=== PATIENT | female | born 1945 | race Caucasian/White ===

== ENCOUNTER 2022-02-12 08:55 | Inpatient (IN) ==
[2022-02-12 09:39] LABS: Arterial Base Excess iSTAT 3 MMOL/L (-2.5-2.5); Arterial O2 Saturation iSTAT 96 % (95-100); Arterial PCO2 iSTAT 33 MM HG (35-48); Arterial PO2 iSTAT 73 MM HG (80-95); Arterial Total CO2 iSTAT 27 MMO/L (23-27)
[2022-02-12 09:48] LABS: Basophils % 0.2 % (0.0-0.8); Eosinophils % 0.1 % (0.00-10.9); Hematocrit 29.8 VOL% (35.7-47.0); Hemoglobin 8.4 GM/DL (12.0-16.0); Immature Granulocytes % 0.7 %; Immature Granulocytes Absolute 0.12 #; Lymphocytes # 0.9 10*3/uL (1.4-4.0); Lymphocytes % 5.1 % (21.3-54.2); Mean Corpuscular HGB Conc 28.2 GM/DL (32-36); Mean Corpuscular Volume 73.2 FL (87-102); Mean Platelet Volume 9.1 FL (9.6-12.0); Monocytes % 11.5 % (1.7-12.7); Neutrophils % 82.4 % (38.7-73.9); Platelet Count 341 T/CUMM (130-400); Red Blood Count 4.07 MC/CUMM (3.8-5.5); Red Cell Distribution Width 17.2 % (9.3-17.3); White Blood Count 17.3 T/CUMM (4-12)
[2022-02-12 09:49] LABS: Albumin 3.2 G/DL (3.4-5.0); Bilirubin,Total 0.4 MG/DL (0.20-1.00); Calcium 8.7 MG/DL (8.5-10.1); Osmolality,Calculated 277.7 MOS/KG (273-304); Potassium 3.8 MMOL/L (3.5-5.1); Total Protein 6.8 G/DL (6.4-8.2)
[2022-02-12] MEDS ORDERED: ALBUTEROL 2.5 MG/3 ML NEB RESP TX STA (09:56)
[2022-02-12] MEDS ORDERED: cefTRIAXone 1,000 MG in SODIUM CHLORIDE 0.9% 100 ML IV STA (09:56)
[2022-02-12] MEDS ORDERED: methylPREDNISolone SOD SUC 40 MG/1 ML VIAL IV STA (09:56)
[2022-02-12] MEDS ORDERED: AZITHROMYCIN INJ 500 MG in SODIUM CHLORIDE 0.9% 250 ML IV STA (09:57)
[2022-02-12 10:24] LABS: Anisocytosis 1+; Platelet Estimate Normal
[2022-02-12] MEDS ORDERED: ACETAMINOPHEN 500 MG TABLET ONE (10:34)
[2022-02-12] MEDS ORDERED: ACETAMINOPHEN 500 MG TABLET PO STA (10:34)
[2022-02-12 10:44] LABS: RBC,Urine 4 /HPF (0-4); Squamous Epithelial Cell,Urine Moderate /HPF (0-10); Urine Appearance Clear (Clear); Urine Color Yellow (Yellow)
[2022-02-12 10:45] LABS: Bilirubin,Urine Negative (Negative); Blood, Urine Negative (Negative); Glucose,Urine (UA) Negative (Negative); Ketones,Urine Negative (Negative); Nitrite,Urine Negative (Negative); Protein,Urine >=300 mg/dL (Negative); Urine Specific Gravity > 1.030 (1.001-1.035); Urine Urobilinogen 0.2 eU/dL (<2.0)
[2022-02-12] MEDS ORDERED: GLUCAGON 1 MG VIAL IM PRN ×2 (10:46→11:25)
[2022-02-12] MEDS ORDERED: ACETAMINOPHEN 325 MG TABLET PO PRN (10:46)
[2022-02-12] MEDS ORDERED: ACETAMINOPHEN 500 MG TABLET PO PRN (10:50)
[2022-02-12 11:06] LABS: Risk Ratio 2.95; VLDL Cholesterol 16.8 MG/DL
[2022-02-12] MEDS ORDERED: DEXTROSE 10% 250 ML BAG IV PRN (11:15)
[2022-02-12] MEDS: hydrALAZINE 25 MG TABLET PO SCH ×2 (11:20→22:55)
[2022-02-12] MEDS ORDERED: DEXTROSE 50% 25 GM/50 ML VIAL IV PRN (11:25)
[2022-02-12 11:54] LABS: % Iron Saturation 5.6 % (18-50); Ferritin 23.1 ng/mL (8-252)
[2022-02-12] MEDS ORDERED: FUROSEMIDE 40 MG/4 ML VIAL IV ONE (12:00)
[2022-02-12] MEDS: ALBUTEROL/IPRATROPIUM 3 ML NEB RESP TX SCH ×2 (13:20→19:59)
[2022-02-12] MEDS: methylPREDNISolone SOD SUC 40 MG/1 ML VIAL IV SCH ×2 (13:42→21:00)
[2022-02-12] MEDS: INSULIN LISPRO 100 UNIT/ML SUBCUT SCH ×3 (13:53→23:19)
[2022-02-12] MEDS: amLODIPine 10 MG TABLET PO SCH (21:01)
[2022-02-12] MEDS: allopurinoL 300 MG TABLET PO SCH (21:01)
[2022-02-12] MEDS: ENOXAPARIN 30 MG/0.3 ML SYRINGE SUBCUT SCH (21:01)
[2022-02-12] MEDS: CHOLECALCIFEROL 1,000 UNIT TABLET PO SCH (21:01)
[2022-02-12] MEDS: AMITRIPTYLINE 25 MG TABLET PO SCH (21:01)
[2022-02-12] MEDS: predniSONE 10 MG TABLET PO SCH (21:01)
[2022-02-12] MEDS: PHENYTOIN ER 100 MG CAPSULE PO SCH (21:01)
[2022-02-12] MEDS: ASPIRIN EC 81 MG TABLET PO SCH (21:02)
[2022-02-12] MEDS: CLOPIDOGREL 75 MG TABLET PO SCH (21:02)
[2022-02-12] MEDS: ISOSORBIDE MONONITRATE 30 MG TABLET PO SCH (21:02)
[2022-02-12] MEDS: VIT C S CHERRY CELERY GRAPE SD PO SCH (21:30)
[2022-02-12] MEDS: ZALEPLON 5 MG CAPSULE PO PRN (22:55)
[2022-02-13] MEDS: ALBUTEROL/IPRATROPIUM 3 ML NEB RESP TX SCH ×4 (00:45→20:05)
[2022-02-13] MEDS: methylPREDNISolone SOD SUC 40 MG/1 ML VIAL IV SCH ×3 (05:30→20:56)
[2022-02-13 05:34] LABS: Basophils % 0.1 % (0.0-0.8); Hematocrit 26.8 VOL% (35.7-47.0); Hemoglobin 7.6 GM/DL (12.0-16.0); Immature Granulocytes % 0.6 %; Immature Granulocytes Absolute 0.08 #; Lymphocytes # 0.6 10*3/uL (1.4-4.0); Lymphocytes % 4.3 % (21.3-54.2); Mean Corpuscular HGB Conc 28.4 GM/DL (32-36); Mean Corpuscular Volume 73.4 FL (87-102); Mean Platelet Volume 8.8 FL (9.6-12.0); Monocytes # 0.8 10*3/uL (0.11-0.8); Monocytes % 5.6 % (1.7-12.7); Neutrophils % 89.4 % (38.7-73.9); Platelet Count 291 T/CUMM (130-400); Red Blood Count 3.65 MC/CUMM (3.8-5.5); Red Cell Distribution Width 17.1 % (9.3-17.3); White Blood Count 14.1 T/CUMM (4-12)
[2022-02-13 05:58] LABS: Band Neutrophils 2 % (0-10); Hypochromia 1+; Lymphocytes 4 % (20-55); Microcytosis 1+; Total Cells Counted 100
[2022-02-13 05:59] LABS: Ovalocytes Slight
[2022-02-13 06:06] LABS: Alanine Aminotransferase 12 U/L (13-56); Albumin 2.7 G/DL (3.4-5.0); Alkaline Phosphatase 92 U/L (45-117); Aspartate Amino Transferase 10 U/L (0-37); Bilirubin,Total < 0.39 MG/DL (0.20-1.00); Blood Urea Nitrogen 26 MG/DL (7-18); Calcium 8.6 MG/DL (8.5-10.1); Carbon Dioxide 25 MMOL/L (21-32); Chloride 105 MMOL/L (98-107); Glucose 125 MG/DL (74-106); Osmolality,Calculated 278.8 MOS/KG (273-304); Potassium 3.6 MMOL/L (3.5-5.1); Sodium 137 MMOL/L (136-145); Total Protein 6.3 G/DL (6.4-8.2)
[2022-02-13] MEDS: LEVOTHYROXINE 100 MCG TABLET PO SCH (06:49)
[2022-02-13] MEDS: INSULIN LISPRO 100 UNIT/ML SUBCUT SCH ×4 (07:45→21:30)
[2022-02-13] MEDS: PANTOPRAZOLE 40 MG TABLET PO SCH (08:45)
[2022-02-13] MEDS ORDERED: POLYETHYLENE GLYCOL POWDER 17 GM PACK PO SCH (09:30)
[2022-02-13] MEDS: cefTRIAXone 1,000 MG in SODIUM CHLORIDE 0.9% 100 ML IV SCH (09:49)
[2022-02-13] MEDS: LINACLOTIDE 145 MCG CAPSULE PO SCH (10:02)
[2022-02-13] MEDS: AZITHROMYCIN INJ 500 MG in SODIUM CHLORIDE 0.9% 250 ML IV SCH (10:37)
[2022-02-13] MEDS: hydrALAZINE 25 MG TABLET PO SCH ×2 (10:38→23:30)
[2022-02-13] MEDS: guaiFENesin/DM ER 600-30 MG TABLET PO SCH ×2 (11:22→20:58)
[2022-02-13] MEDS: CHOLECALCIFEROL 1,000 UNIT TABLET PO SCH (20:56)
[2022-02-13] MEDS: predniSONE 10 MG TABLET PO SCH (20:56)
[2022-02-13] MEDS: PHENYTOIN ER 100 MG CAPSULE PO SCH (20:57)
[2022-02-13] MEDS: ISOSORBIDE MONONITRATE 30 MG TABLET PO SCH (20:57)
[2022-02-13] MEDS: amLODIPine 10 MG TABLET PO SCH (20:57)
[2022-02-13] MEDS: ASPIRIN EC 81 MG TABLET PO SCH (20:57)
[2022-02-13] MEDS: AMITRIPTYLINE 25 MG TABLET PO SCH (20:57)
[2022-02-13] MEDS: DOCUSATE SODIUM 100 MG CAPSULE PO SCH (20:57)
[2022-02-13] MEDS: allopurinoL 300 MG TABLET PO SCH (20:58)
[2022-02-13] MEDS: ENOXAPARIN 30 MG/0.3 ML SYRINGE SUBCUT SCH (20:59)
[2022-02-13] MEDS: POLYETHYLENE GLYCOL POWDER 17 GM PACK PO SCH (20:59)
[2022-02-13] MEDS: VIT C S CHERRY CELERY GRAPE SD PO SCH (21:00)
[2022-02-13] MEDS: ZALEPLON 5 MG CAPSULE PO PRN (21:01)
[2022-02-14] MEDS: ALBUTEROL/IPRATROPIUM 3 ML NEB RESP TX SCH ×4 (01:46→18:56)
[2022-02-14 04:54] LABS: Basophils % 0.1 % (0.0-0.8); Hematocrit 24.5 VOL% (35.7-47.0); Hemoglobin 6.9 GM/DL (12.0-16.0); Immature Granulocytes % 0.8 %; Immature Granulocytes Absolute 0.11 #; Lymphocytes # 0.5 10*3/uL (1.4-4.0); Lymphocytes % 3.4 % (21.3-54.2); Mean Corpuscular HGB Conc 28.2 GM/DL (32-36); Mean Corpuscular Volume 73.6 FL (87-102); Mean Platelet Volume 9.6 FL (9.6-12.0); Monocytes # 0.5 10*3/uL (0.11-0.8); Monocytes % 3.5 % (1.7-12.7); Neutrophils % 92.2 % (38.7-73.9); Platelet Count 348 T/CUMM (130-400); Red Blood Count 3.33 MC/CUMM (3.8-5.5); Red Cell Distribution Width 17.2 % (9.3-17.3); White Blood Count 14.2 T/CUMM (4-12)
[2022-02-14 05:16] LABS: Calcium 8.5 MG/DL (8.5-10.1); Osmolality,Calculated 288.7 MOS/KG (273-304); Potassium 4.1 MMOL/L (3.5-5.1)
[2022-02-14 05:30] LABS: Anisocytosis 1+; Hypochromia 1+; Lymphocytes 1 % (20-55); Microcytosis 1+; Total Cells Counted 100
[2022-02-14] MEDS: methylPREDNISolone SOD SUC 40 MG/1 ML VIAL IV SCH (05:30)
[2022-02-14 05:31] LABS: Ovalocytes Slight; Platelet Estimate Normal
[2022-02-14] MEDS: LEVOTHYROXINE 100 MCG TABLET PO SCH (06:19)
[2022-02-14] MEDS: INSULIN LISPRO 100 UNIT/ML SUBCUT SCH ×4 (08:24→22:00)
[2022-02-14] MEDS ORDERED: SODIUM CHLORIDE 0.9% 1,000 ML IV PRN (09:55)
[2022-02-14] MEDS ORDERED: LACTULOSE 20 GM/30 ML UDCUP PO ONE (09:59)
[2022-02-14] MEDS ORDERED: IRON SUCROSE 300 MG in SODIUM CHLORIDE 0.9% 100 ML IV ONE (10:03)
[2022-02-14] MEDS: DOCUSATE SODIUM 100 MG CAPSULE PO SCH ×2 (10:34→21:54)
[2022-02-14] MEDS: guaiFENesin/DM ER 600-30 MG TABLET PO SCH ×2 (10:34→21:55)
[2022-02-14] MEDS: cefTRIAXone 1,000 MG in SODIUM CHLORIDE 0.9% 100 ML IV SCH (10:34)
[2022-02-14] MEDS: POLYETHYLENE GLYCOL POWDER 17 GM PACK PO SCH ×2 (10:37→21:54)
[2022-02-14] MEDS: LUBIPROSTONE 8 MCG CAPSULE PO SCH ×2 (12:03→23:39)
[2022-02-14] MEDS ORDERED: FERRIC GLUCONATE COMPLEX 125 MG in SODIUM CHLORIDE 0.9% 100 ML IV ONE (13:00)
[2022-02-14] MEDS ORDERED: ALBUTEROL 2.5 MG/3 ML NEB RESP TX PRN (16:05)
[2022-02-14] MEDS: FLUTICASONE/SALMETEROL 250-50 DISKUS 14 DOSE INH SCH ×2 (17:26→23:01)
[2022-02-14] MEDS ORDERED: methylPREDNISolone SOD SUC 125 MG/2 ML VIAL ONE (18:19)
[2022-02-14 18:27] LABS: Arterial Base Excess iSTAT -5 MMOL/L (-2.5-2.5); Arterial Bicarbonate iSTAT 23.2 MMOL/L (20-26); Arterial O2 Saturation iSTAT 95 % (95-100); Arterial PCO2 iSTAT 58 MM HG (35-48); Arterial PO2 iSTAT 90 MM HG (80-95); Arterial Total CO2 iSTAT 25 MMO/L (23-27); Arterial pH iSTAT 7.213 (7.35-7.45)
[2022-02-14] MEDS ORDERED: FUROSEMIDE 40 MG/4 ML VIAL IV ONE (18:30)
[2022-02-14] MEDS ORDERED: FUROSEMIDE 20 MG/2 ML VIAL IV ONE (18:30)
[2022-02-14] MEDS ORDERED: methylPREDNISolone SOD SUC 125 MG/2 ML VIAL IV ONE (18:30)
[2022-02-14] MEDS ORDERED: methylPREDNISolone SOD SUC 125 MG/2 ML VIAL IM ONE (18:45)
[2022-02-14] MEDS: BUDESONIDE 0.5 MG/2 ML NEB RESP TX SCH (18:56)
[2022-02-14] MEDS ORDERED: MORPHINE 2 MG/1 ML SYRINGE IV ONE (19:00)
[2022-02-14 19:12] LABS: Mucus,Urine Occasional /LPF (Occasional); RBC,Urine <1 /HPF (0-4); Squamous Epithelial Cell,Urine Occasional /HPF (0-10); Urine Appearance Clear (Clear); Urine Color Yellow (Yellow); Urine Specific Gravity 1.025 (1.001-1.035); Urine pH 5.5 (4.5-8.0)
[2022-02-14 19:13] LABS: Bilirubin,Urine Negative (Negative); Blood, Urine Negative (Negative); Glucose,Urine (UA) Negative (Negative); Ketones,Urine Negative (Negative); Nitrite,Urine Negative (Negative); Protein,Urine 100 mg/dL (Negative); Urine Urobilinogen 0.2 eU/dL (<2.0)
[2022-02-14 19:19] LABS: Arterial Base Excess iSTAT -3 MMOL/L (-2.5-2.5); Arterial Bicarbonate iSTAT 24.3 MMOL/L (20-26); Arterial O2 Saturation iSTAT 98 % (95-100); Arterial PCO2 iSTAT 52 MM HG (35-48); Arterial PO2 iSTAT 121 MM HG (80-95); Arterial Total CO2 iSTAT 26 MMO/L (23-27)
[2022-02-14] MEDS ORDERED: ETOMIDATE 20 MG/10 ML VIAL IV ONE ×3 (19:26→19:35)
[2022-02-14] MEDS ORDERED: MIDAZOLAM 10 MG/2 ML VIAL ONE (19:26)
[2022-02-14] MEDS ORDERED: MIDAZOLAM 2 MG/2 ML VIAL IV ONE (19:32)
[2022-02-14 19:33] LABS: Alanine Aminotransferase 29 U/L (13-56); Albumin 3.1 G/DL (3.4-5.0); Alkaline Phosphatase 103 U/L (45-117); Aspartate Amino Transferase 29 U/L (0-37); Bilirubin,Total < 0.39 MG/DL (0.20-1.00); Blood Urea Nitrogen 34 MG/DL (7-18); Calcium 8.8 MG/DL (8.5-10.1); Carbon Dioxide 23 MMOL/L (21-32); Chloride 107 MMOL/L (98-107); Glucose 244 MG/DL (74-106); Osmolality,Calculated 292.5 MOS/KG (273-304); Potassium 3.8 MMOL/L (3.5-5.1); Sodium 139 MMOL/L (136-145); Total Protein 6.9 G/DL (6.4-8.2)
[2022-02-14 19:34] LABS: Basophils % 0.2 % (0.0-0.8); Eosinophils % 0.1 % (0.00-10.9); Hemoglobin 9.3 GM/DL (12.0-16.0); Immature Granulocytes Absolute 0.23 #; Lymphocytes # 3.5 10*3/uL (1.4-4.0); Mean Corpuscular HGB Conc 29.1 GM/DL (32-36); Mean Corpuscular Volume 75.1 FL (87-102); Mean Platelet Volume 9.7 FL (9.6-12.0); Monocytes # 1.5 10*3/uL (0.11-0.8); Monocytes % 6.8 % (1.7-12.7); Neutrophils % 75.9 % (38.7-73.9); Platelet Count 515 T/CUMM (130-400); Red Blood Count 4.26 MC/CUMM (3.8-5.5); White Blood Count 22.2 T/CUMM (4-12)
[2022-02-14 19:46] LABS: Hypochromia 1+; Lymphocytes 19 % (20-55); Microcytosis 1+; Polychromasia Slight
[2022-02-14 19:47] LABS: Burr Cells Slight; Ovalocytes Slight; Platelet Estimate Increased
[2022-02-14 19:48] LABS: Total Cells Counted 100
[2022-02-14] MEDS ORDERED: METOPROLOL TARTRATE 5 MG/5 ML VIAL IV ONE (20:00)
[2022-02-14] MEDS ORDERED: PANTOPRAZOLE 40 MG TABLET PO SCH (21:00)
[2022-02-14] MEDS ORDERED: methylPREDNISolone SOD SUC 40 MG/1 ML VIAL IV SCH (21:00)
[2022-02-14] MEDS: allopurinoL 100 MG TABLET PO SCH (21:54)
[2022-02-14] MEDS: CHOLECALCIFEROL 1,000 UNIT TABLET PO SCH (21:54)
[2022-02-14] MEDS: amLODIPine 10 MG TABLET PO SCH (21:54)
[2022-02-14] MEDS: AMITRIPTYLINE 25 MG TABLET PO SCH (21:54)
[2022-02-14] MEDS: ISOSORBIDE MONONITRATE 30 MG TABLET PO SCH (21:54)
[2022-02-14] MEDS: AZITHROMYCIN INJ 500 MG in SODIUM CHLORIDE 0.9% 250 ML IV SCH (21:55)
[2022-02-14] MEDS: hydrALAZINE 25 MG TABLET PO SCH (21:55)
[2022-02-14] MEDS: tiZANidine 4 MG TABLET PO PRN (21:55)
[2022-02-14] MEDS: ASPIRIN EC 81 MG TABLET PO SCH (21:55)
[2022-02-14] MEDS: PHENYTOIN ER 100 MG CAPSULE PO SCH (22:06)
[2022-02-14] MEDS: VIT C S CHERRY CELERY GRAPE SD PO SCH (23:01)
[2022-02-14] MEDS ORDERED: ENOXAPARIN 60 MG/0.6 ML SYRINGE SUBCUT SCH (23:30)
[2022-02-15] MEDS: ALBUTEROL/IPRATROPIUM 3 ML NEB RESP TX SCH ×4 (00:13→19:00)
[2022-02-15 00:53] LABS: Arterial Base Excess iSTAT 1 MMOL/L (-2.5-2.5); Arterial Bicarbonate iSTAT 26.8 MMOL/L (20-26); Arterial O2 Saturation iSTAT 99 % (95-100); Arterial PCO2 iSTAT 46 MM HG (35-48); Arterial PO2 iSTAT 127 MM HG (80-95); Arterial Total CO2 iSTAT 28 MMO/L (23-27); Arterial pH iSTAT 7.375 (7.35-7.45)
[2022-02-15 03:59] LABS: Arterial Base Excess iSTAT 1 MMOL/L (-2.5-2.5); Arterial O2 Saturation iSTAT 98 % (95-100); Arterial PCO2 iSTAT 47 MM HG (35-48); Arterial PO2 iSTAT 105 MM HG (80-95); Arterial Total CO2 iSTAT 28 MMO/L (23-27); Arterial pH iSTAT 7.371 (7.35-7.45)
[2022-02-15 04:41] LABS: Calcium 8.5 MG/DL (8.5-10.1); Osmolality,Calculated 288.5 MOS/KG (273-304); Potassium 4.1 MMOL/L (3.5-5.1)
[2022-02-15 04:51] LABS: Basophils % 0.1 % (0.0-0.8); Hematocrit 27.8 VOL% (35.7-47.0); Hemoglobin 8.1 GM/DL (12.0-16.0); Immature Granulocytes % 1.1 %; Lymphocytes # 0.5 10*3/uL (1.4-4.0); Lymphocytes % 2.5 % (21.3-54.2); Mean Corpuscular HGB Conc 29.1 GM/DL (32-36); Mean Corpuscular Volume 74.7 FL (87-102); Mean Platelet Volume 9.6 FL (9.6-12.0); Monocytes # 1.1 10*3/uL (0.11-0.8); Neutrophils % 90.3 % (38.7-73.9); Platelet Count 373 T/CUMM (130-400); Red Blood Count 3.72 MC/CUMM (3.8-5.5); Red Cell Distribution Width 17.7 % (9.3-17.3); White Blood Count 18.7 T/CUMM (4-12)
[2022-02-15 05:16] LABS: Anisocytosis 1+; Hypochromia 1+; Lymphocytes 3 % (20-55); Microcytosis 1+; Total Cells Counted 100
[2022-02-15 05:17] LABS: Ovalocytes Slight
[2022-02-15] MEDS: LEVOTHYROXINE 100 MCG TABLET PO SCH (05:53)
[2022-02-15] MEDS: BUDESONIDE 0.5 MG/2 ML NEB RESP TX SCH ×3 (07:25→19:00)
[2022-02-15] MEDS: INSULIN LISPRO 100 UNIT/ML SUBCUT SCH ×4 (07:46→20:53)
[2022-02-15] MEDS: LINACLOTIDE 145 MCG CAPSULE PO SCH ×2 (08:06→10:25)
[2022-02-15] MEDS: PANTOPRAZOLE 40 MG TABLET PO SCH (08:06)
[2022-02-15] MEDS: SODIUM CHLORIDE 0.9% 1,000 ML IV SCH (08:06)
[2022-02-15] MEDS ORDERED: methylPREDNISolone SOD SUC 40 MG/1 ML VIAL IV SCH (09:00)
[2022-02-15] MEDS ORDERED: FUROSEMIDE 40 MG/4 ML VIAL IV ONE (10:52)
[2022-02-15] MEDS: DOCUSATE SODIUM 100 MG CAPSULE PO SCH ×2 (10:55→20:43)
[2022-02-15] MEDS: POLYETHYLENE GLYCOL POWDER 17 GM PACK PO SCH ×2 (10:55→20:43)
[2022-02-15] MEDS: ASPIRIN CHEW 81 MG TABLET PO SCH (10:55)
[2022-02-15] MEDS: PHENYTOIN 100 MG/4 ML UDCUP PER TUBE SCH ×4 (10:55→20:43)
[2022-02-15] MEDS: PANTOPRAZOLE 40 MG VIAL IV SCH ×2 (10:55→20:43)
[2022-02-15] MEDS: hydrALAZINE 25 MG TABLET PO SCH ×2 (11:06→20:53)
[2022-02-15] MEDS: LUBIPROSTONE 8 MCG CAPSULE PO SCH ×2 (11:06→20:53)
[2022-02-15] MEDS: guaiFENesin/DM ER 600-30 MG TABLET PO SCH (11:09)
[2022-02-15] MEDS: cefTRIAXone 1,000 MG in SODIUM CHLORIDE 0.9% 100 ML IV SCH (11:23)
[2022-02-15] MEDS: NITROGLYCERIN 0.1 MG/HR PATCH TRANSDERM SCH (14:42)
[2022-02-15] MEDS: AZITHROMYCIN INJ 500 MG in SODIUM CHLORIDE 0.9% 250 ML IV SCH (16:19)
[2022-02-15] MEDS: methylPREDNISolone SOD SUC 40 MG/1 ML VIAL IV SCH (20:42)
[2022-02-15] MEDS: CHOLECALCIFEROL 1,000 UNIT TABLET PO SCH (20:43)
[2022-02-15] MEDS: amLODIPine 10 MG TABLET PO SCH (20:43)
[2022-02-15] MEDS: guaiFENesin 200 MG/10 ML UDCUP PO SCH (20:43)
[2022-02-15] MEDS: AMITRIPTYLINE 25 MG TABLET PO SCH (20:43)
[2022-02-15] MEDS: allopurinoL 100 MG TABLET PO SCH (20:43)
[2022-02-15] MEDS: VIT C S CHERRY CELERY GRAPE SD PO SCH (20:55)
[2022-02-16] MEDS: ALBUTEROL/IPRATROPIUM 3 ML NEB RESP TX SCH ×4 (00:12→19:45)
[2022-02-16 04:07] LABS: Arterial Base Excess iSTAT 2 MMOL/L (-2.5-2.5); Arterial Bicarbonate iSTAT 27.3 MMOL/L (20-26); Arterial O2 Saturation iSTAT 87 % (95-100); Arterial PCO2 iSTAT 46 MM HG (35-48); Arterial PO2 iSTAT 55 MM HG (80-95); Arterial Total CO2 iSTAT 29 MMO/L (23-27); Arterial pH iSTAT 7.382 (7.35-7.45)
[2022-02-16 05:03] LABS: Calcium 8.4 MG/DL (8.5-10.1); Osmolality,Calculated 289.4 MOS/KG (273-304); Potassium 4.6 MMOL/L (3.5-5.1)
[2022-02-16 05:31] LABS: Basophils % 0.1 % (0.0-0.8); Hematocrit 28.7 VOL% (35.7-47.0); Hemoglobin 8.3 GM/DL (12.0-16.0); Immature Granulocytes % 0.8 %; Immature Granulocytes Absolute 0.08 #; Lymphocytes # 0.7 10*3/uL (1.4-4.0); Lymphocytes % 7.1 % (21.3-54.2); Mean Corpuscular HGB Conc 28.9 GM/DL (32-36); Mean Corpuscular Volume 75.9 FL (87-102); Monocytes # 0.6 10*3/uL (0.11-0.8); Monocytes % 5.5 % (1.7-12.7); Neutrophils % 86.5 % (38.7-73.9); Platelet Count 331 T/CUMM (130-400); Red Blood Count 3.78 MC/CUMM (3.8-5.5); Red Cell Distribution Width 17.8 % (9.3-17.3); White Blood Count 10.1 T/CUMM (4-12)
[2022-02-16] MEDS: LEVOTHYROXINE 100 MCG TABLET PO SCH (06:01)
[2022-02-16 06:36] LABS: Platelet Estimate Adequate
[2022-02-16 06:37] LABS: Hypochromia 1+; Microcytosis 1+
[2022-02-16] MEDS: BUDESONIDE 0.5 MG/2 ML NEB RESP TX SCH ×2 (07:25→19:45)
[2022-02-16] MEDS: INSULIN LISPRO 100 UNIT/ML SUBCUT SCH ×4 (08:07→19:59)
[2022-02-16] MEDS: LINACLOTIDE 145 MCG CAPSULE PO SCH (08:08)
[2022-02-16] MEDS: methylPREDNISolone SOD SUC 40 MG/1 ML VIAL IV SCH ×2 (08:33→20:45)
[2022-02-16] MEDS: POLYETHYLENE GLYCOL POWDER 17 GM PACK PO SCH ×2 (08:33→20:45)
[2022-02-16] MEDS: ENOXAPARIN 30 MG/0.3 ML SYRINGE SUBCUT SCH (08:33)
[2022-02-16] MEDS: ASPIRIN CHEW 81 MG TABLET PO SCH (08:34)
[2022-02-16] MEDS: PANTOPRAZOLE 40 MG VIAL IV SCH ×2 (08:34→20:45)
[2022-02-16] MEDS: DOCUSATE SODIUM 100 MG CAPSULE PO SCH ×2 (08:34→20:45)
[2022-02-16] MEDS: NITROGLYCERIN 0.1 MG/HR PATCH TRANSDERM SCH (08:34)
[2022-02-16] MEDS: hydrALAZINE 25 MG TABLET PO SCH ×2 (08:35→20:45)
[2022-02-16] MEDS: guaiFENesin 200 MG/10 ML UDCUP PO SCH ×2 (08:36→20:45)
[2022-02-16] MEDS: LUBIPROSTONE 8 MCG CAPSULE PO SCH ×2 (08:36→19:59)
[2022-02-16] MEDS: cefTRIAXone 1,000 MG in SODIUM CHLORIDE 0.9% 100 ML IV SCH (10:40)
[2022-02-16] MEDS: tiZANidine 4 MG TABLET PO PRN (12:05)
[2022-02-16] MEDS: hydrALAZINE 20 MG/1 ML VIAL IV PRN (12:42)
[2022-02-16] MEDS: HYDROmorphone 1 MG/1 ML SYRINGE IV PRN (13:17)
[2022-02-16] MEDS: AZITHROMYCIN INJ 500 MG in SODIUM CHLORIDE 0.9% 250 ML IV SCH (16:15)
[2022-02-16] MEDS: VIT C S CHERRY CELERY GRAPE SD PO SCH (20:00)
[2022-02-16] MEDS: amLODIPine 10 MG TABLET PO SCH (20:44)
[2022-02-16] MEDS: CHOLECALCIFEROL 1,000 UNIT TABLET PO SCH (20:45)
[2022-02-16] MEDS: AMITRIPTYLINE 25 MG TABLET PO SCH (20:45)
[2022-02-16] MEDS: allopurinoL 100 MG TABLET PO SCH (20:45)
[2022-02-16] MEDS: PHENYTOIN 100 MG/4 ML UDCUP PER TUBE SCH (20:45)
[2022-02-17] MEDS: ALBUTEROL/IPRATROPIUM 3 ML NEB RESP TX SCH ×4 (01:04→19:48)
[2022-02-17 03:35] LABS: ABG Base Excess 2.8 MMOL/L (-2.5-2.5); ABG HCO3 26.9 MMOL/L (20-26); ABG Oxygen Saturation 98.5 % (95-100); ABG TCO2 26.4 MMOL/L (23-27)
[2022-02-17 04:24] LABS: Calcium 8.5 MG/DL (8.5-10.1); Osmolality,Calculated 293.4 MOS/KG (273-304); Potassium 4.5 MMOL/L (3.5-5.1)
[2022-02-17 04:32] LABS: Basophils % 0.2 % (0.0-0.8); Eosinophils % 0.1 % (0.00-10.9); Hematocrit 29.2 VOL% (35.7-47.0); Immature Granulocytes % 1.5 %; Lymphocytes # 0.7 10*3/uL (1.4-4.0); Lymphocytes % 5.6 % (21.3-54.2); Mean Corpuscular HGB Conc 28.4 GM/DL (32-36); Mean Corpuscular Volume 75.6 FL (87-102); Mean Platelet Volume 9.8 FL (9.6-12.0); Monocytes # 0.8 10*3/uL (0.11-0.8); Monocytes % 6.1 % (1.7-12.7); Neutrophils % 86.5 % (38.7-73.9); Platelet Count 354 T/CUMM (130-400); Red Blood Count 3.86 MC/CUMM (3.8-5.5); Red Cell Distribution Width 18.2 % (9.3-17.3)
[2022-02-17 04:37] LABS: Hemoglobin 8.3 GM/DL (12.0-16.0)
[2022-02-17] MEDS: LEVOTHYROXINE 100 MCG TABLET PO SCH (06:07)
[2022-02-17] MEDS: BUDESONIDE 0.5 MG/2 ML NEB RESP TX SCH ×2 (07:02→19:48)
[2022-02-17] MEDS: LINACLOTIDE 145 MCG CAPSULE PO SCH (07:42)
[2022-02-17] MEDS: INSULIN LISPRO 100 UNIT/ML SUBCUT SCH ×4 (07:44→20:07)
[2022-02-17] MEDS: ENOXAPARIN 30 MG/0.3 ML SYRINGE SUBCUT SCH (08:57)
[2022-02-17] MEDS: PHENYTOIN 100 MG/4 ML UDCUP PER TUBE SCH ×3 (08:58→20:31)
[2022-02-17] MEDS: NITROGLYCERIN 0.1 MG/HR PATCH TRANSDERM SCH (08:58)
[2022-02-17] MEDS: PANTOPRAZOLE 40 MG VIAL IV SCH ×2 (08:58→20:30)
[2022-02-17] MEDS: POLYETHYLENE GLYCOL POWDER 17 GM PACK PO SCH ×2 (08:58→20:31)
[2022-02-17] MEDS: methylPREDNISolone SOD SUC 40 MG/1 ML VIAL IV SCH ×2 (08:58→20:30)
[2022-02-17] MEDS: guaiFENesin 200 MG/10 ML UDCUP PO SCH ×2 (08:58→20:31)
[2022-02-17] MEDS: LUBIPROSTONE 8 MCG CAPSULE PO SCH ×2 (08:59→20:07)
[2022-02-17] MEDS: DOCUSATE SODIUM 100 MG CAPSULE PO SCH ×2 (08:59→20:31)
[2022-02-17] MEDS: hydrALAZINE 25 MG TABLET PO SCH ×2 (08:59→20:31)
[2022-02-17] MEDS: ASPIRIN CHEW 81 MG TABLET PO SCH (08:59)
[2022-02-17] MEDS: HYDROmorphone 1 MG/1 ML SYRINGE IV PRN ×3 (09:41→23:59)
[2022-02-17] MEDS: cefTRIAXone 1,000 MG in SODIUM CHLORIDE 0.9% 100 ML IV SCH (10:30)
[2022-02-17] MEDS: hydrALAZINE 20 MG/1 ML VIAL IV PRN (13:05)
[2022-02-17] MEDS: AZITHROMYCIN INJ 500 MG in SODIUM CHLORIDE 0.9% 250 ML IV SCH (17:09)
[2022-02-17] MEDS: VIT C S CHERRY CELERY GRAPE SD PO SCH (20:08)
[2022-02-17] MEDS: AMITRIPTYLINE 25 MG TABLET PO SCH (20:31)
[2022-02-17] MEDS: allopurinoL 100 MG TABLET PO SCH (20:31)
[2022-02-17] MEDS: amLODIPine 10 MG TABLET PO SCH (20:31)
[2022-02-17] MEDS: CHOLECALCIFEROL 1,000 UNIT TABLET PO SCH (20:31)
[2022-02-18] MEDS: ALBUTEROL/IPRATROPIUM 3 ML NEB RESP TX SCH ×4 (01:04→18:48)
[2022-02-18 03:22] LABS: Arterial Base Excess iSTAT 3 MMOL/L (-2.5-2.5); Arterial Bicarbonate iSTAT 29.4 MMOL/L (20-26); Arterial O2 Saturation iSTAT 92 % (95-100); Arterial PCO2 iSTAT 52 MM HG (35-48); Arterial PO2 iSTAT 67 MM HG (80-95); Arterial Total CO2 iSTAT 31 MMO/L (23-27); Arterial pH iSTAT 7.358 (7.35-7.45)
[2022-02-18 04:47] LABS: Basophils % 0.2 % (0.0-0.8); Eosinophils % 0.2 % (0.00-10.9); Hematocrit 36.3 VOL% (35.7-47.0); Hemoglobin 10.1 GM/DL (12.0-16.0); Immature Granulocytes % 2.5 %; Immature Granulocytes Absolute 0.23 #; Lymphocytes # 0.7 10*3/uL (1.4-4.0); Mean Corpuscular HGB Conc 27.8 GM/DL (32-36); Mean Corpuscular Volume 77.1 FL (87-102); Mean Platelet Volume 9.9 FL (9.6-12.0); Monocytes # 0.6 10*3/uL (0.11-0.8); Neutrophils % 83.1 % (38.7-73.9); Platelet Count 335 T/CUMM (130-400); Red Blood Count 4.71 MC/CUMM (3.8-5.5); Red Cell Distribution Width 19.6 % (9.3-17.3); White Blood Count 9.3 T/CUMM (4-12)
[2022-02-18 05:24] LABS: Hypochromia 1+; Lymphocytes 12 % (20-55); Microcytosis 1+; Total Cells Counted 100
[2022-02-18 05:25] LABS: Ovalocytes Slight; Platelet Estimate Normal
[2022-02-18] MEDS: LEVOTHYROXINE 100 MCG TABLET PO SCH (05:56)
[2022-02-18] MEDS: BUDESONIDE 0.5 MG/2 ML NEB RESP TX SCH ×2 (07:20→18:48)
[2022-02-18] MEDS: LINACLOTIDE 145 MCG CAPSULE PO SCH (07:48)
[2022-02-18] MEDS: INSULIN LISPRO 100 UNIT/ML SUBCUT SCH ×4 (07:48→20:21)
[2022-02-18 07:59] LABS: Calcium 8.6 MG/DL (8.5-10.1); Osmolality,Calculated 293.1 MOS/KG (273-304); Potassium 4.4 MMOL/L (3.5-5.1)
[2022-02-18] MEDS: LUBIPROSTONE 8 MCG CAPSULE PO SCH ×2 (08:28→20:21)
[2022-02-18] MEDS ORDERED: MIDAZOLAM 2 MG/2 ML VIAL ONE (08:42)
[2022-02-18] MEDS ORDERED: MIDAZOLAM 2 MG/2 ML VIAL IV ONE (08:43)
[2022-02-18] MEDS: ENOXAPARIN 30 MG/0.3 ML SYRINGE SUBCUT SCH (08:56)
[2022-02-18] MEDS: DOCUSATE SODIUM 100 MG CAPSULE PO SCH ×2 (08:56→20:13)
[2022-02-18] MEDS: hydrALAZINE 25 MG TABLET PO SCH ×2 (08:56→20:13)
[2022-02-18] MEDS: ASPIRIN CHEW 81 MG TABLET PO SCH (08:56)
[2022-02-18] MEDS: PHENYTOIN 100 MG/4 ML UDCUP PER TUBE SCH ×3 (08:56→20:12)
[2022-02-18] MEDS: POLYETHYLENE GLYCOL POWDER 17 GM PACK PO SCH ×2 (08:56→20:12)
[2022-02-18] MEDS: methylPREDNISolone SOD SUC 40 MG/1 ML VIAL IV SCH ×2 (08:57→20:14)
[2022-02-18] MEDS: NITROGLYCERIN 0.1 MG/HR PATCH TRANSDERM SCH (08:57)
[2022-02-18] MEDS: guaiFENesin 200 MG/10 ML UDCUP PO SCH ×2 (08:57→20:13)
[2022-02-18] MEDS: PANTOPRAZOLE 40 MG VIAL IV SCH ×2 (08:57→20:14)
[2022-02-18] MEDS: cefTRIAXone 1,000 MG in SODIUM CHLORIDE 0.9% 100 ML IV SCH (09:34)
[2022-02-18] MEDS: AMITRIPTYLINE 25 MG TABLET PO SCH (20:13)
[2022-02-18] MEDS: amLODIPine 10 MG TABLET PO SCH (20:13)
[2022-02-18] MEDS: allopurinoL 100 MG TABLET PO SCH (20:13)
[2022-02-18] MEDS: CHOLECALCIFEROL 1,000 UNIT TABLET PO SCH (20:13)
[2022-02-18] MEDS: VIT C S CHERRY CELERY GRAPE SD PO SCH (20:21)
[2022-02-19] MEDS: ALBUTEROL/IPRATROPIUM 3 ML NEB RESP TX SCH ×4 (00:06→19:03)
[2022-02-19 04:21] LABS: Arterial Base Excess iSTAT 6 MMOL/L (-2.5-2.5); Arterial Bicarbonate iSTAT 32.4 MMOL/L (20-26); Arterial O2 Saturation iSTAT 99 % (95-100); Arterial PCO2 iSTAT 54 MM HG (35-48); Arterial PO2 iSTAT 167 MM HG (80-95); Arterial Total CO2 iSTAT 34 MMO/L (23-27)
[2022-02-19 04:51] LABS: Phosphorous 4.6 MG/DL (2.5-4.9)
[2022-02-19 04:57] LABS: Calcium 8.5 MG/DL (8.5-10.1); Osmolality,Calculated 294.1 MOS/KG (273-304); Potassium 4.8 MMOL/L (3.5-5.1)
[2022-02-19 05:08] LABS: Basophils % 0.2 % (0.0-0.8); Eosinophils % 0.1 % (0.00-10.9); Hematocrit 27.6 VOL% (35.7-47.0); Immature Granulocytes % 2.4 %; Immature Granulocytes Absolute 0.33 #; Lymphocytes # 0.8 10*3/uL (1.4-4.0); Lymphocytes % 5.8 % (21.3-54.2); Mean Corpuscular Volume 76.2 FL (87-102); Mean Platelet Volume 9.6 FL (9.6-12.0); Monocytes # 0.8 10*3/uL (0.11-0.8); Neutrophils % 85.5 % (38.7-73.9); Platelet Count 338 T/CUMM (130-400); Red Cell Distribution Width 19.4 % (9.3-17.3)
[2022-02-19 05:10] LABS: Red Blood Count 3.62 MC/CUMM (3.8-5.5); White Blood Count 13.6 T/CUMM (4-12)
[2022-02-19] MEDS: LEVOTHYROXINE 100 MCG TABLET PO SCH (05:38)
[2022-02-19] MEDS: BUDESONIDE 0.5 MG/2 ML NEB RESP TX SCH ×2 (07:08→18:59)
[2022-02-19] MEDS: INSULIN LISPRO 100 UNIT/ML SUBCUT SCH ×3 (07:25→18:14)
[2022-02-19] MEDS: LINACLOTIDE 145 MCG CAPSULE PO SCH (07:26)
[2022-02-19] MEDS: DOCUSATE SODIUM 100 MG CAPSULE PO SCH ×2 (08:02→20:05)
[2022-02-19] MEDS: hydrALAZINE 25 MG TABLET PO SCH ×2 (08:02→21:31)
[2022-02-19] MEDS: ASPIRIN CHEW 81 MG TABLET PO SCH (08:02)
[2022-02-19] MEDS: POLYETHYLENE GLYCOL POWDER 17 GM PACK PO SCH ×2 (08:02→20:06)
[2022-02-19] MEDS: methylPREDNISolone SOD SUC 40 MG/1 ML VIAL IV SCH ×2 (08:02→20:05)
[2022-02-19] MEDS: guaiFENesin 200 MG/10 ML UDCUP PO SCH ×2 (08:03→20:05)
[2022-02-19] MEDS: PANTOPRAZOLE 40 MG VIAL IV SCH ×2 (08:03→20:04)
[2022-02-19] MEDS: PHENYTOIN 100 MG/4 ML UDCUP PER TUBE SCH ×3 (08:03→20:05)
[2022-02-19] MEDS: NITROGLYCERIN 0.1 MG/HR PATCH TRANSDERM SCH (08:03)
[2022-02-19] MEDS: ENOXAPARIN 30 MG/0.3 ML SYRINGE SUBCUT SCH (08:03)
[2022-02-19] MEDS: LUBIPROSTONE 8 MCG CAPSULE PO SCH ×2 (08:04→20:15)
[2022-02-19 09:21] LABS: Alanine Aminotransferase 16 U/L (13-56); Albumin 2.4 G/DL (3.4-5.0); Alkaline Phosphatase 90 U/L (45-117); Aspartate Amino Transferase 19 U/L (0-37); Bilirubin,Total < 0.39 MG/DL (0.20-1.00); Blood Urea Nitrogen 37 MG/DL (7-18); Calcium 9.1 MG/DL (8.5-10.1); Carbon Dioxide 28 MMOL/L (21-32); Chloride 106 MMOL/L (98-107); Glucose 95 MG/DL (74-106); Osmolality,Calculated 289.3 MOS/KG (273-304); Potassium 4.7 MMOL/L (3.5-5.1); Sodium 141 MMOL/L (136-145); Total Protein 6.1 G/DL (6.4-8.2)
[2022-02-19] MEDS: cefTRIAXone 1,000 MG in SODIUM CHLORIDE 0.9% 100 ML IV SCH (09:31)
[2022-02-19] MEDS ORDERED: FUROSEMIDE 40 MG/4 ML VIAL IV ONE (13:49)
[2022-02-19] MEDS: VANCOMYCIN INJ 1,000 MG in SODIUM CHLORIDE 0.9% 250 ML IV SCH (14:43)
[2022-02-19] MEDS: DEXMEDETOMIDINE 200 MCG in SODIUM CHLORIDE 0.9% 48 ML IV PRN ×2 (14:44→22:42)
[2022-02-19] MEDS: CHOLECALCIFEROL 1,000 UNIT TABLET PO SCH (20:05)
[2022-02-19] MEDS: allopurinoL 100 MG TABLET PO SCH (20:05)
[2022-02-19] MEDS: AMITRIPTYLINE 25 MG TABLET PO SCH (20:06)
[2022-02-19] MEDS: VIT C S CHERRY CELERY GRAPE SD PO SCH (20:15)
[2022-02-19] MEDS: amLODIPine 10 MG TABLET PO SCH (21:31)
[2022-02-20] MEDS: INSULIN LISPRO 100 UNIT/ML SUBCUT SCH ×4 (00:47→19:01)
[2022-02-20] MEDS: ALBUTEROL/IPRATROPIUM 3 ML NEB RESP TX SCH ×4 (00:51→19:43)
[2022-02-20 04:20] LABS: Arterial Base Excess iSTAT 9 MMOL/L (-2.5-2.5); Arterial Bicarbonate iSTAT 34.5 MMOL/L (20-26); Arterial O2 Saturation iSTAT 99 % (95-100); Arterial PCO2 iSTAT 50 MM HG (35-48); Arterial PO2 iSTAT 147 MM HG (80-95); Arterial Total CO2 iSTAT 36 MMO/L (23-27); Arterial pH iSTAT 7.449 (7.35-7.45)
[2022-02-20 04:39] LABS: Calcium 8.7 MG/DL (8.5-10.1); Osmolality,Calculated 289.1 MOS/KG (273-304); Potassium 4.8 MMOL/L (3.5-5.1)
[2022-02-20] MEDS: DEXMEDETOMIDINE 400 MCG in SODIUM CHLORIDE 0.9% 96 ML IV PRN ×2 (04:53→17:06)
[2022-02-20 05:18] LABS: Basophils % 0.1 % (0.0-0.8); Eosinophils # 0.1 10*3/uL (0.0-0.87); Eosinophils % 0.4 % (0.00-10.9); Hematocrit 29.5 VOL% (35.7-47.0); Hemoglobin 8.7 GM/DL (12.0-16.0); Immature Granulocytes % 2.6 %; Immature Granulocytes Absolute 0.39 #; Lymphocytes % 6.6 % (21.3-54.2); Mean Corpuscular HGB Conc 29.5 GM/DL (32-36); Mean Corpuscular Volume 75.3 FL (87-102); Monocytes # 1.1 10*3/uL (0.11-0.8); Monocytes % 7.3 % (1.7-12.7); Platelet Count 322 T/CUMM (130-400); Red Blood Count 3.92 MC/CUMM (3.8-5.5); Red Cell Distribution Width 20.2 % (9.3-17.3)
[2022-02-20 05:38] LABS: White Blood Count 15.2 T/CUMM (4-12)
[2022-02-20] MEDS: LEVOTHYROXINE 100 MCG TABLET PO SCH (06:31)
[2022-02-20] MEDS: BUDESONIDE 0.5 MG/2 ML NEB RESP TX SCH ×2 (07:21→19:44)
[2022-02-20] MEDS: LUBIPROSTONE 8 MCG CAPSULE PO SCH ×2 (08:34→20:43)
[2022-02-20] MEDS: LINACLOTIDE 145 MCG CAPSULE PO SCH (08:34)
[2022-02-20] MEDS: hydrALAZINE 25 MG TABLET PO SCH ×3 (08:34→23:14)
[2022-02-20] MEDS: PHENYTOIN 100 MG/4 ML UDCUP PER TUBE SCH ×3 (08:55→20:24)
[2022-02-20] MEDS: ENOXAPARIN 30 MG/0.3 ML SYRINGE SUBCUT SCH (08:55)
[2022-02-20] MEDS: PANTOPRAZOLE 40 MG VIAL IV SCH ×2 (08:55→20:24)
[2022-02-20] MEDS: ASPIRIN CHEW 81 MG TABLET PO SCH (08:55)
[2022-02-20] MEDS: guaiFENesin 200 MG/10 ML UDCUP PO SCH ×2 (08:55→20:25)
[2022-02-20] MEDS: POLYETHYLENE GLYCOL POWDER 17 GM PACK PO SCH ×2 (08:55→20:25)
[2022-02-20] MEDS: DOCUSATE SODIUM 100 MG CAPSULE PO SCH ×2 (08:55→20:25)
[2022-02-20] MEDS: methylPREDNISolone SOD SUC 40 MG/1 ML VIAL IV SCH ×2 (08:56→20:25)
[2022-02-20] MEDS: cefTRIAXone 1,000 MG in SODIUM CHLORIDE 0.9% 100 ML IV SCH (09:30)
[2022-02-20] MEDS: NITROGLYCERIN 0.1 MG/HR PATCH TRANSDERM SCH (12:28)
[2022-02-20] MEDS ORDERED: FUROSEMIDE 40 MG/4 ML VIAL IV ONE (12:40)
[2022-02-20] MEDS: VANCOMYCIN INJ 1,000 MG in SODIUM CHLORIDE 0.9% 250 ML IV SCH (15:32)
[2022-02-20] MEDS: tiZANidine 4 MG TABLET PO PRN (20:25)
[2022-02-20] MEDS: allopurinoL 100 MG TABLET PO SCH (20:25)
[2022-02-20] MEDS: CHOLECALCIFEROL 1,000 UNIT TABLET PO SCH (20:25)
[2022-02-20] MEDS: CLORAZEPATE 3.75 MG TABLET PO PRN (20:25)
[2022-02-20] MEDS: AMITRIPTYLINE 25 MG TABLET PO SCH (20:25)
[2022-02-20] MEDS: VIT C S CHERRY CELERY GRAPE SD PO SCH (20:43)
[2022-02-20] MEDS: amLODIPine 10 MG TABLET PO SCH (23:14)
[2022-02-21] MEDS: INSULIN LISPRO 100 UNIT/ML SUBCUT SCH ×5 (00:13→23:16)
[2022-02-21] MEDS: hydrALAZINE 20 MG/1 ML VIAL IV PRN ×2 (01:05→02:11)
[2022-02-21] MEDS: ALBUTEROL/IPRATROPIUM 3 ML NEB RESP TX SCH ×4 (01:10→20:33)
[2022-02-21] MEDS ORDERED: LABETALOL 20 MG/4 ML SYRINGE IV ONE (01:43)
[2022-02-21] MEDS: hydrALAZINE 25 MG TABLET PO SCH ×3 (01:58→21:42)
[2022-02-21] MEDS: amLODIPine 10 MG TABLET PO SCH ×2 (01:59→21:42)
[2022-02-21] MEDS: DEXMEDETOMIDINE 400 MCG in SODIUM CHLORIDE 0.9% 96 ML IV PRN ×2 (02:33→19:35)
[2022-02-21 02:55] LABS: Basophils # 0.1 10*3/uL (0.0-0.2); Basophils % 0.4 % (0.0-0.8); Eosinophils # 0.1 10*3/uL (0.0-0.87); Eosinophils % 0.5 % (0.00-10.9); Hematocrit 35.8 VOL% (35.7-47.0); Hemoglobin 10.2 GM/DL (12.0-16.0); Immature Granulocytes % 5.4 %; Immature Granulocytes Absolute 1.21 #; Lymphocytes # 1.3 10*3/uL (1.4-4.0); Lymphocytes % 5.7 % (21.3-54.2); Mean Corpuscular HGB Conc 28.5 GM/DL (32-36); Mean Corpuscular Volume 76.7 FL (87-102); Mean Platelet Volume 10.4 FL (9.6-12.0); Monocytes # 1.5 10*3/uL (0.11-0.8); Monocytes % 6.6 % (1.7-12.7); Neutrophils % 81.4 % (38.7-73.9); Platelet Count 501 T/CUMM (130-400); Red Blood Count 4.67 MC/CUMM (3.8-5.5); Red Cell Distribution Width 20.5 % (9.3-17.3)
[2022-02-21] MEDS: HYDROmorphone 1 MG/1 ML SYRINGE IV PRN ×2 (02:55→23:06)
[2022-02-21 03:07] LABS: White Blood Count 22.6 T/CUMM (4-12)
[2022-02-21 03:18] LABS: Calcium 9.4 MG/DL (8.5-10.1); Potassium 4.3 MMOL/L (3.5-5.1)
[2022-02-21 03:25] LABS: Lymphocytes 7 % (20-55); Platelet Estimate Adequate; Total Cells Counted 100
[2022-02-21 03:26] LABS: Hypochromia Slight; Microcytosis Slight
[2022-02-21 05:36] LABS: ABG Base Excess 9.4 MMOL/L (-2.5-2.5); ABG HCO3 33.2 MMOL/L (20-26); ABG Oxygen Saturation 98.1 % (95-100); ABG PCO2 48.1 MM HG (35-48); ABG PH 7.464 (7.35-7.45); ABG TCO2 31.5 MMOL/L (23-27)
[2022-02-21] MEDS: LEVOTHYROXINE 100 MCG TABLET PO SCH (05:45)
[2022-02-21] MEDS: CLORAZEPATE 3.75 MG TABLET PO PRN (05:46)
[2022-02-21] MEDS: BUDESONIDE 0.5 MG/2 ML NEB RESP TX SCH ×2 (07:20→20:33)
[2022-02-21] MEDS: DOCUSATE SODIUM 100 MG CAPSULE PO SCH ×2 (08:30→21:42)
[2022-02-21] MEDS: ASPIRIN CHEW 81 MG TABLET PO SCH (08:30)
[2022-02-21] MEDS: LUBIPROSTONE 8 MCG CAPSULE PO SCH ×2 (08:30→21:42)
[2022-02-21] MEDS: NITROGLYCERIN 0.1 MG/HR PATCH TRANSDERM SCH (08:31)
[2022-02-21] MEDS: PHENYTOIN 100 MG/4 ML UDCUP PER TUBE SCH ×3 (08:31→21:40)
[2022-02-21] MEDS: methylPREDNISolone SOD SUC 40 MG/1 ML VIAL IV SCH ×2 (08:31→21:40)
[2022-02-21] MEDS: PANTOPRAZOLE 40 MG VIAL IV SCH ×2 (08:32→21:40)
[2022-02-21] MEDS: guaiFENesin 200 MG/10 ML UDCUP PO SCH ×2 (08:32→21:41)
[2022-02-21] MEDS: ENOXAPARIN 30 MG/0.3 ML SYRINGE SUBCUT SCH (08:32)
[2022-02-21] MEDS: POLYETHYLENE GLYCOL POWDER 17 GM PACK PO SCH ×2 (08:32→21:42)
[2022-02-21] MEDS: LINACLOTIDE 145 MCG CAPSULE PO SCH (08:34)
[2022-02-21 11:49] LABS: Arterial Base Excess iSTAT 10 MMOL/L (-2.5-2.5); Arterial Bicarbonate iSTAT 35.3 MMOL/L (20-26); Arterial O2 Saturation iSTAT 95 % (95-100); Arterial PCO2 iSTAT 49 MM HG (35-48); Arterial PO2 iSTAT 75 MM HG (80-95); Arterial Total CO2 iSTAT 37 MMO/L (23-27); Arterial pH iSTAT 7.466 (7.35-7.45)
[2022-02-21 12:41] LABS: Bacteria,Urine Occasional /HPF (Few); Mucus,Urine Occasional /LPF (Occasional); RBC,Urine 5 /HPF (0-4); Squamous Epithelial Cell,Urine Occasional /HPF (0-10)
[2022-02-21 12:42] LABS: Protein,Urine 30 mg/dL (Negative); Urine Appearance Clear (Clear); Urine Color Yellow (Yellow); Urine Specific Gravity 1.025 (1.001-1.035); Urine pH 5.5 (4.5-8.0)
[2022-02-21 12:43] LABS: Bilirubin,Urine Negative (Negative); Blood, Urine Negative (Negative); Glucose,Urine (UA) Negative (Negative); Ketones,Urine Trace mg/dL (Negative); Nitrite,Urine Negative (Negative); Urine Urobilinogen 0.2 eU/dL (<2.0)
[2022-02-21] MEDS: VANCOMYCIN INJ 1,000 MG in SODIUM CHLORIDE 0.9% 250 ML IV SCH (15:22)
[2022-02-21] MEDS: VIT C S CHERRY CELERY GRAPE SD PO SCH (21:00)
[2022-02-21] MEDS: allopurinoL 100 MG TABLET PO SCH (21:42)
[2022-02-21] MEDS: CHOLECALCIFEROL 1,000 UNIT TABLET PO SCH (21:42)
[2022-02-21] MEDS: AMITRIPTYLINE 25 MG TABLET PO SCH (22:03)
[2022-02-22] MEDS: ALBUTEROL/IPRATROPIUM 3 ML NEB RESP TX SCH ×5 (00:53→22:22)
[2022-02-22 04:48] LABS: Phosphorous 3.9 MG/DL (2.5-4.9)
[2022-02-22 04:54] LABS: Calcium 8.8 MG/DL (8.5-10.1); Osmolality,Calculated 295.1 MOS/KG (273-304)
[2022-02-22] MEDS: INSULIN LISPRO 100 UNIT/ML SUBCUT SCH ×3 (05:15→17:33)
[2022-02-22 05:22] LABS: Basophils % 0.3 % (0.0-0.8); Eosinophils % 0.3 % (0.00-10.9); Hematocrit 29.5 VOL% (35.7-47.0); Hemoglobin 8.5 GM/DL (12.0-16.0); Immature Granulocytes % 4.4 %; Immature Granulocytes Absolute 0.67 #; Lymphocytes # 0.9 10*3/uL (1.4-4.0); Lymphocytes % 5.9 % (21.3-54.2); Mean Corpuscular HGB Conc 28.8 GM/DL (32-36); Mean Corpuscular Volume 75.6 FL (87-102); Monocytes # 0.9 10*3/uL (0.11-0.8); Neutrophils % 83.1 % (38.7-73.9); Platelet Count 398 T/CUMM (130-400); Red Cell Distribution Width 20.3 % (9.3-17.3); White Blood Count 15.3 T/CUMM (4-12)
[2022-02-22 05:31] LABS: Band Neutrophils 1 % (0-10); Hypochromia 1+; Lymphocytes 6 % (20-55); Microcytosis 1+; Platelet Estimate Adequate; Total Cells Counted 100
[2022-02-22 05:37] LABS: ABG Base Excess 7.6 MMOL/L (-2.5-2.5); ABG HCO3 31.5 MMOL/L (20-26); ABG Oxygen Saturation 99.4 % (95-100); ABG PCO2 44.6 MM HG (35-48); ABG PH 7.467 (7.35-7.45); ABG TCO2 29.8 MMOL/L (23-27)
[2022-02-22] MEDS: LEVOTHYROXINE 100 MCG TABLET PO SCH (06:01)
[2022-02-22] MEDS: BUDESONIDE 0.5 MG/2 ML NEB RESP TX SCH ×2 (07:31→19:23)
[2022-02-22] MEDS: hydrALAZINE 25 MG TABLET PO SCH ×2 (08:58→20:38)
[2022-02-22] MEDS: CLORAZEPATE 3.75 MG TABLET PO PRN ×2 (08:58→22:19)
[2022-02-22] MEDS: ENOXAPARIN 30 MG/0.3 ML SYRINGE SUBCUT SCH (08:58)
[2022-02-22] MEDS: LUBIPROSTONE 8 MCG CAPSULE PO SCH ×2 (08:59→20:38)
[2022-02-22] MEDS: POLYETHYLENE GLYCOL POWDER 17 GM PACK PO SCH ×2 (08:59→20:51)
[2022-02-22] MEDS: PHENYTOIN 100 MG/4 ML UDCUP PER TUBE SCH ×3 (08:59→20:39)
[2022-02-22] MEDS: DOCUSATE SODIUM 100 MG CAPSULE PO SCH ×2 (08:59→20:40)
[2022-02-22] MEDS: ASPIRIN CHEW 81 MG TABLET PO SCH (08:59)
[2022-02-22] MEDS: NITROGLYCERIN 0.1 MG/HR PATCH TRANSDERM SCH (09:00)
[2022-02-22] MEDS: LINACLOTIDE 145 MCG CAPSULE PO SCH (09:00)
[2022-02-22] MEDS: PANTOPRAZOLE 40 MG VIAL IV SCH ×2 (09:01→20:39)
[2022-02-22] MEDS: methylPREDNISolone SOD SUC 40 MG/1 ML VIAL IV SCH ×2 (09:04→20:39)
[2022-02-22] MEDS: guaiFENesin 200 MG/10 ML UDCUP PO SCH ×2 (09:04→20:38)
[2022-02-22] MEDS: hydrALAZINE 20 MG/1 ML VIAL IV PRN (11:54)
[2022-02-22] MEDS: VANCOMYCIN INJ 1,000 MG in SODIUM CHLORIDE 0.9% 250 ML IV SCH (15:48)
[2022-02-22] MEDS: AMITRIPTYLINE 25 MG TABLET PO SCH (20:37)
[2022-02-22] MEDS: CHOLECALCIFEROL 1,000 UNIT TABLET PO SCH (20:37)
[2022-02-22] MEDS: allopurinoL 100 MG TABLET PO SCH (20:38)
[2022-02-22] MEDS: amLODIPine 10 MG TABLET PO SCH (20:51)
[2022-02-22] MEDS: VIT C S CHERRY CELERY GRAPE SD PO SCH (20:53)
[2022-02-23] MEDS: INSULIN LISPRO 100 UNIT/ML SUBCUT SCH ×4 (00:13→18:01)
[2022-02-23] MEDS: hydrALAZINE 20 MG/1 ML VIAL IV PRN ×2 (01:04→10:30)
[2022-02-23 05:33] LABS: Basophils # 0.1 10*3/uL (0.0-0.2); Basophils % 0.3 % (0.0-0.8); Eosinophils % 0.1 % (0.00-10.9); Hemoglobin 9.1 GM/DL (12.0-16.0); Immature Granulocytes % 4.5 %; Lymphocytes % 6.1 % (21.3-54.2); Mean Corpuscular HGB Conc 28.9 GM/DL (32-36); Mean Corpuscular Volume 75.5 FL (87-102); Mean Platelet Volume 10.3 FL (9.6-12.0); Monocytes # 1.1 10*3/uL (0.11-0.8); Monocytes % 6.9 % (1.7-12.7); Neutrophils % 82.1 % (38.7-73.9); Platelet Count 387 T/CUMM (130-400); Red Blood Count 4.17 MC/CUMM (3.8-5.5); Red Cell Distribution Width 20.5 % (9.3-17.3); White Blood Count 15.7 T/CUMM (4-12)
[2022-02-23 05:34] LABS: Hematocrit 31.5 VOL% (35.7-47.0)
[2022-02-23 05:39] LABS: Eosinophils 1 % (0-10); Hypochromia 1+; Lymphocytes 5 % (20-55); Microcytosis 1+; Platelet Estimate Adequate; Total Cells Counted 100
[2022-02-23] MEDS: LEVOTHYROXINE 100 MCG TABLET PO SCH (05:52)
[2022-02-23 06:33] LABS: Calcium 9.1 MG/DL (8.5-10.1); Osmolality,Calculated 292.1 MOS/KG (273-304); Potassium 3.5 MMOL/L (3.5-5.1)
[2022-02-23] MEDS: BUDESONIDE 0.5 MG/2 ML NEB RESP TX SCH ×2 (07:22→19:34)
[2022-02-23] MEDS: ALBUTEROL/IPRATROPIUM 3 ML NEB RESP TX SCH ×3 (07:22→19:34)
[2022-02-23] MEDS: POLYETHYLENE GLYCOL POWDER 17 GM PACK PO SCH ×2 (08:10→21:49)
[2022-02-23] MEDS: ASPIRIN CHEW 81 MG TABLET PO SCH (08:11)
[2022-02-23] MEDS: DOCUSATE SODIUM 100 MG CAPSULE PO SCH ×2 (08:11→21:48)
[2022-02-23] MEDS: LUBIPROSTONE 8 MCG CAPSULE PO SCH ×2 (08:12→21:47)
[2022-02-23] MEDS: hydrALAZINE 25 MG TABLET PO SCH ×2 (08:12→21:48)
[2022-02-23] MEDS: LINACLOTIDE 145 MCG CAPSULE PO SCH (08:12)
[2022-02-23] MEDS: PHENYTOIN 100 MG/4 ML UDCUP PER TUBE SCH ×3 (08:13→21:49)
[2022-02-23] MEDS: ENOXAPARIN 30 MG/0.3 ML SYRINGE SUBCUT SCH (08:13)
[2022-02-23] MEDS: guaiFENesin 200 MG/10 ML UDCUP PO SCH ×2 (08:15→21:49)
[2022-02-23] MEDS: methylPREDNISolone SOD SUC 40 MG/1 ML VIAL IV SCH (08:15)
[2022-02-23] MEDS: PANTOPRAZOLE 40 MG VIAL IV SCH (08:17)
[2022-02-23] MEDS: NITROGLYCERIN 0.1 MG/HR PATCH TRANSDERM SCH (08:21)
[2022-02-23] MEDS: SULFAMETHOX/TRIMETHOPRIM 800-160 MG TABLET PO SCH ×2 (09:01→21:48)
[2022-02-23] MEDS ORDERED: FUROSEMIDE 40 MG/4 ML VIAL IV ONE (12:33)
[2022-02-23] MEDS: POTASSIUM CHLORIDE 20 MEQ TABLET PO PRN ×2 (13:52→16:41)
[2022-02-23] MEDS: CHOLECALCIFEROL 1,000 UNIT TABLET PO SCH (21:47)
[2022-02-23] MEDS: allopurinoL 100 MG TABLET PO SCH (21:48)
[2022-02-23] MEDS: PANTOPRAZOLE 40 MG TABLET PO SCH (21:48)
[2022-02-23] MEDS: amLODIPine 10 MG TABLET PO SCH (21:48)
[2022-02-23] MEDS: AMITRIPTYLINE 25 MG TABLET PO SCH (21:56)
[2022-02-23] MEDS: VIT C S CHERRY CELERY GRAPE SD PO SCH (21:56)
[2022-02-23] MEDS: FLUTICASONE/SALMETEROL 250-50 DISKUS 14 DOSE INH SCH (23:49)
[2022-02-24] MEDS: ALBUTEROL/IPRATROPIUM 3 ML NEB RESP TX SCH ×4 (00:35→19:10)
[2022-02-24] MEDS: INSULIN LISPRO 100 UNIT/ML SUBCUT SCH ×4 (01:32→20:14)
[2022-02-24 06:27] LABS: Calcium 9.2 MG/DL (8.5-10.1); Osmolality,Calculated 284.3 MOS/KG (273-304); Potassium 3.5 MMOL/L (3.5-5.1)
[2022-02-24] MEDS: LEVOTHYROXINE 100 MCG TABLET PO SCH (06:41)
[2022-02-24 07:05] LABS: Anisocytosis 3+; Hypochromia 3+; Microcytosis 2+; Platelet Estimate Normal; Target Cells 2+
[2022-02-24] MEDS: BUDESONIDE 0.5 MG/2 ML NEB RESP TX SCH ×2 (07:05→19:10)
[2022-02-24 07:38] LABS: Basophils % 0.3 % (0.0-0.8); Eosinophils # 0.1 10*3/uL (0.0-0.87); Eosinophils % 1.1 % (0.00-10.9); Hematocrit 31.2 VOL% (35.7-47.0); Immature Granulocytes % 3.7 %; Immature Granulocytes Absolute 0.41 #; Lymphocytes % 8.6 % (21.3-54.2); Mean Corpuscular HGB Conc 28.8 GM/DL (32-36); Mean Corpuscular Volume 75.5 FL (87-102); Monocytes # 1.2 10*3/uL (0.11-0.8); Monocytes % 10.3 % (1.7-12.7); Platelet Count 343 T/CUMM (130-400); Red Blood Count 4.13 MC/CUMM (3.8-5.5); Red Cell Distribution Width 20.4 % (9.3-17.3); White Blood Count 11.2 T/CUMM (4-12)
[2022-02-24] MEDS: PANTOPRAZOLE 40 MG TABLET PO SCH ×2 (09:21→21:11)
[2022-02-24] MEDS: LUBIPROSTONE 8 MCG CAPSULE PO SCH ×2 (09:21→21:11)
[2022-02-24] MEDS: DOCUSATE SODIUM 100 MG CAPSULE PO SCH ×2 (09:21→21:11)
[2022-02-24] MEDS: SULFAMETHOX/TRIMETHOPRIM 800-160 MG TABLET PO SCH ×2 (09:21→21:11)
[2022-02-24] MEDS: predniSONE 20 MG TABLET PO SCH (09:21)
[2022-02-24] MEDS: ASPIRIN CHEW 81 MG TABLET PO SCH (09:21)
[2022-02-24] MEDS: hydrALAZINE 25 MG TABLET PO SCH ×3 (09:21→21:11)
[2022-02-24] MEDS: PHENYTOIN 100 MG/4 ML UDCUP PER TUBE SCH ×3 (09:22→21:10)
[2022-02-24] MEDS: ENOXAPARIN 30 MG/0.3 ML SYRINGE SUBCUT SCH (09:22)
[2022-02-24] MEDS: LINACLOTIDE 145 MCG CAPSULE PO SCH (09:22)
[2022-02-24] MEDS: guaiFENesin 200 MG/10 ML UDCUP PO SCH ×2 (09:22→21:10)
[2022-02-24] MEDS: FLUTICASONE/SALMETEROL 250-50 DISKUS 14 DOSE INH SCH ×2 (09:22→21:12)
[2022-02-24] MEDS: POLYETHYLENE GLYCOL POWDER 17 GM PACK PO SCH ×2 (09:22→21:10)
[2022-02-24] MEDS: NITROGLYCERIN 0.1 MG/HR PATCH TRANSDERM SCH (09:22)
[2022-02-24] MEDS: VIT C S CHERRY CELERY GRAPE SD PO SCH (21:10)
[2022-02-24] MEDS: CLOPIDOGREL 75 MG TABLET PO SCH (21:11)
[2022-02-24] MEDS: CHOLECALCIFEROL 1,000 UNIT TABLET PO SCH (21:11)
[2022-02-24] MEDS: AMITRIPTYLINE 25 MG TABLET PO SCH (21:11)
[2022-02-24] MEDS: amLODIPine 10 MG TABLET PO SCH (21:11)
[2022-02-24] MEDS: allopurinoL 100 MG TABLET PO SCH (21:11)
[2022-02-24] MEDS: CLORAZEPATE 3.75 MG TABLET PO PRN (21:16)
[2022-02-25] MEDS: INSULIN LISPRO 100 UNIT/ML SUBCUT SCH ×2 (00:21→06:02)
[2022-02-25] MEDS: ALBUTEROL/IPRATROPIUM 3 ML NEB RESP TX SCH ×4 (01:05→19:42)
[2022-02-25 06:02] LABS: Calcium 8.8 MG/DL (8.5-10.1); Osmolality,Calculated 283.1 MOS/KG (273-304); Potassium 3.4 MMOL/L (3.5-5.1)
[2022-02-25] MEDS: LEVOTHYROXINE 100 MCG TABLET PO SCH (06:02)
[2022-02-25] MEDS: BUDESONIDE 0.5 MG/2 ML NEB RESP TX SCH ×2 (07:33→19:43)
[2022-02-25] MEDS: PANTOPRAZOLE 40 MG TABLET PO SCH ×2 (09:35→21:52)
[2022-02-25] MEDS: DOCUSATE SODIUM 100 MG CAPSULE PO SCH ×2 (09:35→21:52)
[2022-02-25] MEDS: predniSONE 20 MG TABLET PO SCH (09:35)
[2022-02-25] MEDS: ASPIRIN CHEW 81 MG TABLET PO SCH (09:35)
[2022-02-25] MEDS: LINACLOTIDE 145 MCG CAPSULE PO SCH (09:35)
[2022-02-25] MEDS: LUBIPROSTONE 8 MCG CAPSULE PO SCH ×2 (09:35→21:52)
[2022-02-25] MEDS: SULFAMETHOX/TRIMETHOPRIM 800-160 MG TABLET PO SCH (09:36)
[2022-02-25] MEDS: PHENYTOIN 100 MG/4 ML UDCUP PER TUBE SCH ×3 (09:36→21:51)
[2022-02-25] MEDS: guaiFENesin 200 MG/10 ML UDCUP PO SCH ×2 (09:36→21:51)
[2022-02-25] MEDS: FLUTICASONE/SALMETEROL 250-50 DISKUS 14 DOSE INH SCH ×2 (09:36→21:52)
[2022-02-25] MEDS: hydrALAZINE 25 MG TABLET PO SCH ×3 (09:36→21:52)
[2022-02-25] MEDS: POLYETHYLENE GLYCOL POWDER 17 GM PACK PO SCH ×3 (09:36→21:52)
[2022-02-25] MEDS: ENOXAPARIN 30 MG/0.3 ML SYRINGE SUBCUT SCH (09:36)
[2022-02-25] MEDS: NITROGLYCERIN 0.1 MG/HR PATCH TRANSDERM SCH (09:37)
[2022-02-25] MEDS: CLOPIDOGREL 75 MG TABLET PO SCH (21:51)
[2022-02-25] MEDS: allopurinoL 100 MG TABLET PO SCH (21:51)
[2022-02-25] MEDS: LINEZOLID 600 MG TABLET PO SCH (21:51)
[2022-02-25] MEDS: amLODIPine 10 MG TABLET PO SCH (21:51)
[2022-02-25] MEDS: VIT C S CHERRY CELERY GRAPE SD PO SCH (21:52)
[2022-02-25] MEDS: CHOLECALCIFEROL 1,000 UNIT TABLET PO SCH (21:52)
[2022-02-25] MEDS: CLORAZEPATE 3.75 MG TABLET PO PRN (22:24)
[2022-02-26] MEDS: ALBUTEROL/IPRATROPIUM 3 ML NEB RESP TX SCH ×4 (00:02→19:50)
[2022-02-26] MEDS: LEVOTHYROXINE 100 MCG TABLET PO SCH (05:58)
[2022-02-26 06:57] LABS: Basophils # 0.1 10*3/uL (0.0-0.2); Basophils % 0.6 % (0.0-0.8); Eosinophils # 0.1 10*3/uL (0.0-0.87); Eosinophils % 1.1 % (0.00-10.9); Hematocrit 30.8 VOL% (35.7-47.0); Hemoglobin 8.8 GM/DL (12.0-16.0); Immature Granulocytes % 4.7 %; Immature Granulocytes Absolute 0.46 #; Lymphocytes # 1.4 10*3/uL (1.4-4.0); Mean Corpuscular HGB Conc 28.6 GM/DL (32-36); Mean Corpuscular Volume 76.4 FL (87-102); Mean Platelet Volume 9.8 FL (9.6-12.0); Monocytes # 0.9 10*3/uL (0.11-0.8); Monocytes % 8.9 % (1.7-12.7); Neutrophils % 70.7 % (38.7-73.9); Platelet Count 352 T/CUMM (130-400); Red Blood Count 4.03 MC/CUMM (3.8-5.5); Red Cell Distribution Width 20.7 % (9.3-17.3); White Blood Count 9.7 T/CUMM (4-12)
[2022-02-26 07:33] LABS: Albumin 2.9 G/DL (3.4-5.0); Calcium 8.8 MG/DL (8.5-10.1); Osmolality,Calculated 283.1 MOS/KG (273-304); Phosphorous 3.3 MG/DL (2.5-4.9); Potassium 3.3 MMOL/L (3.5-5.1)
[2022-02-26] MEDS ORDERED: POTASSIUM CHLORIDE 20 MEQ TABLET PO ONE (08:05)
[2022-02-26] MEDS: LINACLOTIDE 145 MCG CAPSULE PO SCH (09:17)
[2022-02-26] MEDS: LUBIPROSTONE 8 MCG CAPSULE PO SCH ×2 (09:18→21:05)
[2022-02-26] MEDS: FLUTICASONE/SALMETEROL 250-50 DISKUS 14 DOSE INH SCH ×2 (09:18→21:04)
[2022-02-26] MEDS: ASPIRIN CHEW 81 MG TABLET PO SCH (09:19)
[2022-02-26] MEDS: hydrALAZINE 25 MG TABLET PO SCH ×3 (09:19→21:05)
[2022-02-26] MEDS: DOCUSATE SODIUM 100 MG CAPSULE PO SCH ×2 (09:19→21:05)
[2022-02-26] MEDS: PHENYTOIN 100 MG/4 ML UDCUP PER TUBE SCH ×3 (09:19→21:06)
[2022-02-26] MEDS: PANTOPRAZOLE 40 MG TABLET PO SCH ×2 (09:20→21:05)
[2022-02-26] MEDS: ENOXAPARIN 30 MG/0.3 ML SYRINGE SUBCUT SCH (09:20)
[2022-02-26] MEDS: NITROGLYCERIN 0.1 MG/HR PATCH TRANSDERM SCH (09:20)
[2022-02-26] MEDS: POLYETHYLENE GLYCOL POWDER 17 GM PACK PO SCH ×2 (09:20→21:11)
[2022-02-26] MEDS: predniSONE 20 MG TABLET PO SCH (09:20)
[2022-02-26] MEDS: guaiFENesin 200 MG/10 ML UDCUP PO SCH ×2 (09:20→21:06)
[2022-02-26] MEDS: LINEZOLID 600 MG TABLET PO SCH ×2 (09:21→21:05)
[2022-02-26] MEDS: BUDESONIDE 0.5 MG/2 ML NEB RESP TX SCH (16:09)
[2022-02-26] MEDS: CLORAZEPATE 3.75 MG TABLET PO PRN (21:04)
[2022-02-26] MEDS: CLOPIDOGREL 75 MG TABLET PO SCH (21:04)
[2022-02-26] MEDS: CHOLECALCIFEROL 1,000 UNIT TABLET PO SCH (21:05)
[2022-02-26] MEDS: amLODIPine 10 MG TABLET PO SCH (21:05)
[2022-02-26] MEDS: allopurinoL 100 MG TABLET PO SCH (21:05)
[2022-02-26] MEDS: VIT C S CHERRY CELERY GRAPE SD PO SCH (21:11)
[2022-02-27] MEDS: ALBUTEROL/IPRATROPIUM 3 ML NEB RESP TX SCH ×4 (00:25→19:45)
[2022-02-27] MEDS: LEVOTHYROXINE 100 MCG TABLET PO SCH (05:44)
[2022-02-27 05:51] LABS: Albumin 2.8 G/DL (3.4-5.0); Calcium 8.8 MG/DL (8.5-10.1); Phosphorous 3.4 MG/DL (2.5-4.9); Potassium 3.8 MMOL/L (3.5-5.1)
[2022-02-27 06:14] LABS: Basophils % 0.4 % (0.0-0.8); Eosinophils # 0.1 10*3/uL (0.0-0.87); Eosinophils % 1.2 % (0.00-10.9); Hematocrit 32.3 VOL% (35.7-47.0); Hemoglobin 9.2 GM/DL (12.0-16.0); Immature Granulocytes % 3.7 %; Immature Granulocytes Absolute 0.36 #; Lymphocytes # 1.3 10*3/uL (1.4-4.0); Lymphocytes % 13.9 % (21.3-54.2); Mean Corpuscular HGB Conc 28.5 GM/DL (32-36); Mean Corpuscular Volume 77.5 FL (87-102); Mean Platelet Volume 9.3 FL (9.6-12.0); Monocytes # 0.8 10*3/uL (0.11-0.8); Neutrophils % 72.8 % (38.7-73.9); Platelet Count 364 T/CUMM (130-400); Red Blood Count 4.17 MC/CUMM (3.8-5.5); Red Cell Distribution Width 21.5 % (9.3-17.3); White Blood Count 9.7 T/CUMM (4-12)
[2022-02-27 06:19] LABS: Hypochromia 1+; Microcytosis 2+; Ovalocytes Slight; Platelet Estimate Normal
[2022-02-27] MEDS: hydrALAZINE 25 MG TABLET PO SCH ×3 (08:26→21:12)
[2022-02-27] MEDS: LINEZOLID 600 MG TABLET PO SCH ×2 (08:26→21:11)
[2022-02-27] MEDS: LINACLOTIDE 145 MCG CAPSULE PO SCH (08:26)
[2022-02-27] MEDS: LUBIPROSTONE 8 MCG CAPSULE PO SCH ×2 (08:26→21:11)
[2022-02-27] MEDS: ASPIRIN CHEW 81 MG TABLET PO SCH (08:27)
[2022-02-27] MEDS: POLYETHYLENE GLYCOL POWDER 17 GM PACK PO SCH ×2 (08:27→21:12)
[2022-02-27] MEDS: ENOXAPARIN 30 MG/0.3 ML SYRINGE SUBCUT SCH (08:27)
[2022-02-27] MEDS: PHENYTOIN ER 100 MG CAPSULE PO SCH ×3 (08:27→21:11)
[2022-02-27] MEDS: DOCUSATE SODIUM 100 MG CAPSULE PO SCH ×2 (08:27→21:12)
[2022-02-27] MEDS: predniSONE 20 MG TABLET PO SCH (08:27)
[2022-02-27] MEDS: guaiFENesin 200 MG/10 ML UDCUP PO SCH ×2 (08:28→21:12)
[2022-02-27] MEDS: ONDANSETRON 4 MG/2 ML VIAL IV PRN (08:31)
[2022-02-27] MEDS: FLUTICASONE/SALMETEROL 250-50 DISKUS 14 DOSE INH SCH ×2 (08:31→21:13)
[2022-02-27] MEDS: NITROGLYCERIN 0.1 MG/HR PATCH TRANSDERM SCH (08:32)
[2022-02-27] MEDS: PANTOPRAZOLE 40 MG TABLET PO SCH ×2 (08:34→21:11)
[2022-02-27] MEDS: CLORAZEPATE 3.75 MG TABLET PO PRN (21:11)
[2022-02-27] MEDS: CHOLECALCIFEROL 1,000 UNIT TABLET PO SCH (21:12)
[2022-02-27] MEDS: amLODIPine 10 MG TABLET PO SCH (21:12)
[2022-02-27] MEDS: allopurinoL 100 MG TABLET PO SCH (21:12)
[2022-02-27] MEDS: CLOPIDOGREL 75 MG TABLET PO SCH (21:12)
[2022-02-27] MEDS: VIT C S CHERRY CELERY GRAPE SD PO SCH (21:13)
[2022-02-28] MEDS: ALBUTEROL/IPRATROPIUM 3 ML NEB RESP TX SCH ×4 (01:45→19:43)
[2022-02-28] MEDS: LEVOTHYROXINE 100 MCG TABLET PO SCH (05:45)
[2022-02-28 06:23] LABS: Alanine Aminotransferase 42 U/L (13-56); Alkaline Phosphatase 95 U/L (45-117); Aspartate Amino Transferase 40 U/L (0-37); Bilirubin,Total < 0.39 MG/DL (0.20-1.00); Blood Urea Nitrogen 15 MG/DL (7-18); Calcium 9.2 MG/DL (8.5-10.1); Carbon Dioxide 26 MMOL/L (21-32); Chloride 106 MMOL/L (98-107); Glucose 105 MG/DL (74-106); Osmolality,Calculated 279.4 MOS/KG (273-304); Potassium 3.6 MMOL/L (3.5-5.1); Sodium 140 MMOL/L (136-145); Total Protein 6.4 G/DL (6.4-8.2)
[2022-02-28 06:33] LABS: Basophils # 0.1 10*3/uL (0.0-0.2); Basophils % 0.7 % (0.0-0.8); Eosinophils # 0.1 10*3/uL (0.0-0.87); Eosinophils % 0.9 % (0.00-10.9); Hemoglobin 9.8 GM/DL (12.0-16.0); Immature Granulocytes % 2.6 %; Immature Granulocytes Absolute 0.27 #; Lymphocytes # 1.4 10*3/uL (1.4-4.0); Mean Corpuscular HGB Conc 28.2 GM/DL (32-36); Mean Corpuscular Volume 78.2 FL (87-102); Mean Platelet Volume 9.7 FL (9.6-12.0); Monocytes # 0.7 10*3/uL (0.11-0.8); Monocytes % 6.9 % (1.7-12.7); Neutrophils % 74.9 % (38.7-73.9); Platelet Count 407 T/CUMM (130-400); Red Blood Count 4.44 MC/CUMM (3.8-5.5); White Blood Count 10.3 T/CUMM (4-12)
[2022-02-28 06:34] LABS: Hematocrit 34.7 VOL% (35.7-47.0)
[2022-02-28 06:56] LABS: Hypochromia 2+
[2022-02-28 06:57] LABS: Microcytosis 2+; Platelet Estimate Increased
[2022-02-28 06:58] LABS: Ovalocytes Slight
[2022-02-28] MEDS: guaiFENesin 200 MG/10 ML UDCUP PO SCH ×2 (08:28→21:53)
[2022-02-28] MEDS: LUBIPROSTONE 8 MCG CAPSULE PO SCH ×2 (08:28→21:52)
[2022-02-28] MEDS: LINACLOTIDE 145 MCG CAPSULE PO SCH (08:28)
[2022-02-28] MEDS: PHENYTOIN ER 100 MG CAPSULE PO SCH ×3 (08:29→21:53)
[2022-02-28] MEDS: ASPIRIN CHEW 81 MG TABLET PO SCH (08:29)
[2022-02-28] MEDS: hydrALAZINE 25 MG TABLET PO SCH ×3 (08:29→21:52)
[2022-02-28] MEDS: ENOXAPARIN 30 MG/0.3 ML SYRINGE SUBCUT SCH (08:29)
[2022-02-28] MEDS: DOCUSATE SODIUM 100 MG CAPSULE PO SCH ×2 (08:29→21:53)
[2022-02-28] MEDS: PANTOPRAZOLE 40 MG TABLET PO SCH ×2 (08:30→21:53)
[2022-02-28] MEDS: tiZANidine 4 MG TABLET PO PRN (08:30)
[2022-02-28] MEDS: POLYETHYLENE GLYCOL POWDER 17 GM PACK PO SCH ×3 (08:30→21:59)
[2022-02-28] MEDS: predniSONE 20 MG TABLET PO SCH (08:30)
[2022-02-28] MEDS: FLUTICASONE/SALMETEROL 250-50 DISKUS 14 DOSE INH SCH ×2 (08:31→21:56)
[2022-02-28] MEDS: LINEZOLID 600 MG TABLET PO SCH ×2 (08:35→21:53)
[2022-02-28] MEDS: NITROGLYCERIN 0.1 MG/HR PATCH TRANSDERM SCH (08:37)
[2022-02-28] MEDS ORDERED: TUBERCULIN SKIN TEST 0.1 ML SYRINGE INTRADERM ONE (09:30)
[2022-02-28] MEDS: ONDANSETRON 4 MG/2 ML VIAL IV PRN (10:13)
[2022-02-28] MEDS: CHOLECALCIFEROL 1,000 UNIT TABLET PO SCH (21:52)
[2022-02-28] MEDS: CLOPIDOGREL 75 MG TABLET PO SCH (21:53)
[2022-02-28] MEDS: amLODIPine 10 MG TABLET PO SCH (21:53)
[2022-02-28] MEDS: allopurinoL 100 MG TABLET PO SCH (21:53)
[2022-02-28] MEDS: VIT C S CHERRY CELERY GRAPE SD PO SCH (21:56)
[2022-03-01] MEDS: ALBUTEROL/IPRATROPIUM 3 ML NEB RESP TX SCH ×2 (00:40→07:08)
[2022-03-01] MEDS: LEVOTHYROXINE 100 MCG TABLET PO SCH (05:58)
[2022-03-01 06:26] LABS: Alanine Aminotransferase 57 U/L (13-56); Albumin 3.1 G/DL (3.4-5.0); Alkaline Phosphatase 102 U/L (45-117); Aspartate Amino Transferase 54 U/L (0-37); Bilirubin,Total < 0.39 MG/DL (0.20-1.00); Blood Urea Nitrogen 15 MG/DL (7-18); Carbon Dioxide 24 MMOL/L (21-32); Chloride 106 MMOL/L (98-107); Glucose 103 MG/DL (74-106); Osmolality,Calculated 275.7 MOS/KG (273-304); Potassium 3.4 MMOL/L (3.5-5.1); Sodium 138 MMOL/L (136-145); Total Protein 6.4 G/DL (6.4-8.2)
[2022-03-01 06:52] LABS: Basophils # 0.1 10*3/uL (0.0-0.2); Basophils % 0.6 % (0.0-0.8); Eosinophils # 0.1 10*3/uL (0.0-0.87); Eosinophils % 0.9 % (0.00-10.9); Hemoglobin 9.8 GM/DL (12.0-16.0); Lymphocytes # 1.4 10*3/uL (1.4-4.0); Lymphocytes % 13.3 % (21.3-54.2); Mean Corpuscular HGB Conc 28.7 GM/DL (32-36); Mean Corpuscular Volume 77.9 FL (87-102); Mean Platelet Volume 9.7 FL (9.6-12.0); Monocytes # 0.8 10*3/uL (0.11-0.8); Monocytes % 7.7 % (1.7-12.7); Neutrophils % 75.5 % (38.7-73.9); Platelet Count 372 T/CUMM (130-400); Red Blood Count 4.38 MC/CUMM (3.8-5.5); Red Cell Distribution Width 22.2 % (9.3-17.3); White Blood Count 10.2 T/CUMM (4-12)
[2022-03-01 06:54] LABS: Hematocrit 34.1 VOL% (35.7-47.0)
[2022-03-01 07:26] LABS: Hypochromia 1+; Microcytosis 2+; Ovalocytes Slight; Platelet Estimate Normal
[2022-03-01] MEDS: LINACLOTIDE 145 MCG CAPSULE PO SCH (09:59)
[2022-03-01] MEDS: PANTOPRAZOLE 40 MG TABLET PO SCH (10:00)
[2022-03-01] MEDS: ASPIRIN CHEW 81 MG TABLET PO SCH (10:00)
[2022-03-01] MEDS: FLUTICASONE/SALMETEROL 250-50 DISKUS 14 DOSE INH SCH (10:00)
[2022-03-01] MEDS: NITROGLYCERIN 0.1 MG/HR PATCH TRANSDERM SCH (10:00)
[2022-03-01] MEDS: PHENYTOIN ER 100 MG CAPSULE PO SCH (10:00)
[2022-03-01] MEDS: predniSONE 20 MG TABLET PO SCH (10:00)
[2022-03-01] MEDS: LUBIPROSTONE 8 MCG CAPSULE PO SCH (10:00)
[2022-03-01] MEDS: POLYETHYLENE GLYCOL POWDER 17 GM PACK PO SCH (10:00)
[2022-03-01] MEDS: ENOXAPARIN 30 MG/0.3 ML SYRINGE SUBCUT SCH (10:00)
[2022-03-01] MEDS: DOCUSATE SODIUM 100 MG CAPSULE PO SCH (10:00)
[2022-03-01] MEDS: LINEZOLID 600 MG TABLET PO SCH (10:01)
[2022-03-01] MEDS: guaiFENesin 200 MG/10 ML UDCUP PO SCH (10:01)
[2022-03-01 12:08] VITALS: BP 162/66
== END 2022-03-01 13:17 | disposition swing bed (61) | DRG 207 ==
LOC: N.ED 08:55 → SUATTDRO 10:47 → N.EDINP 10:47 → N.TELES 12:30 → N.ICU 02-14 18:33 → N.3E 02-23 17:27
PROVIDERS: ADMIT Internal Medicine; ATTEND Family Medicine

== ENCOUNTER 2022-05-20 16:47 | Observation (INO) ==
[2022-05-20 18:11] LABS: Basophils % 0.2 % (0.0-0.8); Eosinophils % 0.2 % (0.00-10.9); Hematocrit 24.3 VOL% (35.7-47.0); Hemoglobin 7.5 GM/DL (12.0-16.0); Immature Granulocytes % 0.6 %; Immature Granulocytes Absolute 0.08 #; Lymphocytes # 0.9 10*3/uL (1.4-4.0); Lymphocytes % 6.5 % (21.3-54.2); Mean Corpuscular HGB Conc 30.9 GM/DL (32-36); Mean Corpuscular Volume 97.6 FL (87-102); Mean Platelet Volume 9.5 FL (9.6-12.0); Monocytes # 1.3 10*3/uL (0.11-0.8); Monocytes % 9.9 % (1.7-12.7); Neutrophils % 82.6 % (38.7-73.9); Platelet Count 270 T/CUMM (130-400); Red Blood Count 2.49 MC/CUMM (3.8-5.5); Red Cell Distribution Width 15.9 % (9.3-17.3)
[2022-05-20 18:22] LABS: INR 0.9; PT Patient Result 10.5 SECS (10.1-12.1); Partial Thromboplastin Time 27.4 SECS (23.7-32.9)
[2022-05-20 18:30] LABS: Albumin 3.3 G/DL (3.4-5.0); Bilirubin,Total 0.5 MG/DL (0.20-1.00); Calcium 8.3 MG/DL (8.5-10.1); Osmolality,Calculated 279.5 MOS/KG (273-304); Potassium 3.5 MMOL/L (3.5-5.1); Total Protein 5.9 G/DL (6.4-8.2)
[2022-05-20] MEDS ORDERED: methylPREDNISolone SOD SUC 125 MG/2 ML VIAL IV STA (18:35)
[2022-05-20] MEDS ORDERED: ALBUTEROL/IPRATROPIUM 3 ML NEB RESP TX STA (18:35)
[2022-05-20] MEDS ORDERED: ASPIRIN EC 325 MG TABLET PO STA (18:36)
[2022-05-20] MEDS ORDERED: cefTRIAXone 1,000 MG in SODIUM CHLORIDE 0.9% 100 ML IV STA (19:05)
[2022-05-20] MEDS ORDERED: ACETAMINOPHEN 325 MG TABLET PO PRN (21:15)
[2022-05-20] MEDS ORDERED: DOCUSATE SODIUM 100 MG CAPSULE PO PRN (21:15)
[2022-05-20] MEDS ORDERED: ONDANSETRON 4 MG/2 ML VIAL IV PRN (21:15)
[2022-05-20] MEDS ORDERED: ENOXAPARIN 40 MG/0.4 ML SYRINGE SUBCUT SCH (21:30)
[2022-05-20] MEDS ORDERED: SODIUM CHLORIDE 0.45% 1,000 ML IV SCH (21:30)
[2022-05-20] MEDS: amLODIPine 10 MG TABLET PO SCH (22:42)
[2022-05-20] MEDS: ENOXAPARIN 40 MG/0.4 ML SYRINGE SUBCUT SCH (22:42)
[2022-05-20] MEDS ORDERED: CLOPIDOGREL 75 MG TABLET PO SCH (23:30)
[2022-05-21] MEDS: ALBUTEROL/IPRATROPIUM 3 ML NEB RESP TX SCH ×4 (00:05→19:44)
[2022-05-21] MEDS: ISOSORBIDE MONONITRATE 30 MG TABLET PO SCH ×2 (00:49→21:08)
[2022-05-21] MEDS ORDERED: ZALEPLON 5 MG CAPSULE PO PRN (01:03)
[2022-05-21 01:36] LABS: Basophils % 0.2 % (0.0-0.8); Hematocrit 23.6 VOL% (35.7-47.0); Hemoglobin 7.5 GM/DL (12.0-16.0); Immature Granulocytes % 0.6 %; Immature Granulocytes Absolute 0.08 #; Lymphocytes # 0.5 10*3/uL (1.4-4.0); Lymphocytes % 3.5 % (21.3-54.2); Mean Corpuscular HGB Conc 31.8 GM/DL (32-36); Mean Corpuscular Volume 96.7 FL (87-102); Mean Platelet Volume 9.7 FL (9.6-12.0); Monocytes # 0.7 10*3/uL (0.11-0.8); Monocytes % 4.9 % (1.7-12.7); Neutrophils % 90.8 % (38.7-73.9); Platelet Count 265 T/CUMM (130-400); Red Blood Count 2.44 MC/CUMM (3.8-5.5); Red Cell Distribution Width 15.5 % (9.3-17.3); White Blood Count 13.5 T/CUMM (4-12)
[2022-05-21 02:10] LABS: Lymphocytes 3 % (20-55); Platelet Estimate Normal; Total Cells Counted 100
[2022-05-21 02:11] LABS: Calcium 8.5 MG/DL (8.5-10.1); Osmolality,Calculated 279.7 MOS/KG (273-304); Potassium 3.8 MMOL/L (3.5-5.1); Thyroid Stimulating Hormone 0.431 uIU/ml (0.358-3.74)
[2022-05-21] MEDS: LEVOTHYROXINE 100 MCG TABLET PO SCH (05:29)
[2022-05-21] MEDS: hydrALAZINE 25 MG TABLET PO SCH ×4 (08:21→21:08)
[2022-05-21] MEDS: PHENYTOIN ER 100 MG CAPSULE PO SCH ×4 (08:21→21:08)
[2022-05-21] MEDS: guaiFENesin/DM ER 600-30 MG TABLET PO SCH ×2 (08:21→21:08)
[2022-05-21] MEDS: LEVOFLOXACIN INJ 500 MG/100 ML PREMIX IV SCH (08:22)
[2022-05-21] MEDS: methylPREDNISolone SOD SUC 40 MG/1 ML VIAL IV SCH ×2 (08:22→21:09)
[2022-05-21] MEDS: ENOXAPARIN 40 MG/0.4 ML SYRINGE SUBCUT SCH (08:22)
[2022-05-21] MEDS ORDERED: SODIUM CHLORIDE 0.9% 1,000 ML IV PRN ×2 (09:55→12:08)
[2022-05-21] MEDS ORDERED: FERRIC GLUCONATE COMPLEX 125 MG in SODIUM CHLORIDE 0.9% 100 ML IV ONE (10:00)
[2022-05-21 10:58] LABS: Basophils % 0.2 % (0.0-0.8); Eosinophils % 0.1 % (0.00-10.9); Hematocrit 21.4 VOL% (35.7-47.0); Hemoglobin 6.8 GM/DL (12.0-16.0); Immature Granulocytes % 0.5 %; Immature Granulocytes Absolute 0.05 #; Lymphocytes # 0.5 10*3/uL (1.4-4.0); Lymphocytes % 4.4 % (21.3-54.2); Mean Corpuscular HGB Conc 31.8 GM/DL (32-36); Mean Platelet Volume 9.6 FL (9.6-12.0); Monocytes # 0.8 10*3/uL (0.11-0.8); Monocytes % 7.5 % (1.7-12.7); Neutrophils % 87.3 % (38.7-73.9); Platelet Count 243 T/CUMM (130-400); Red Blood Count 2.23 MC/CUMM (3.8-5.5); Red Cell Distribution Width 15.6 % (9.3-17.3); White Blood Count 10.4 T/CUMM (4-12)
[2022-05-21] MEDS: FLUTICASONE/SALMETEROL 250-50 DISKUS 14 DOSE INH SCH ×2 (11:05→21:09)
[2022-05-21 11:13] LABS: % Iron Saturation 17.5 % (18-50); Ferritin 44.4 ng/mL (8-252)
[2022-05-21 11:23] LABS: Band Neutrophils 1 % (0-10); Lymphocytes 2 % (20-55); Total Cells Counted 100
[2022-05-21 11:24] LABS: Macrocytosis Slight; Platelet Estimate Normal
[2022-05-21 11:27] LABS: Folate 9.68 NG/ML (5.38-24.0)
[2022-05-21 17:52] LABS: Bacteria,Urine Occasional /HPF (Few); Bilirubin,Urine Negative (Negative); Blood, Urine Negative (Negative); Glucose,Urine (UA) Negative (Negative); Hyaline Casts,Urine 3 /LPF (0-3); Ketones,Urine Negative (Negative); Mucus,Urine Occasional /LPF (Occasional); Nitrite,Urine Negative (Negative); Protein,Urine 30 mg/dL (Negative); RBC,Urine <1 /HPF (0-4); Squamous Epithelial Cell,Urine Occasional /HPF (0-10); Urine Appearance Clear (Clear); Urine Color Yellow (Yellow); Urine Specific Gravity 1.032 (1.001-1.035); Urine Urobilinogen 0.2 eU/dL (<2.0); Urine pH 5.5 (4.5-8.0)
[2022-05-21 19:26] LABS: Hematocrit 27.6 VOL% (35.7-47.0); Hemoglobin 8.9 GM/DL (12.0-16.0)
[2022-05-21] MEDS ORDERED: ASPIRIN EC 81 MG TABLET PO SCH (21:00)
[2022-05-21] MEDS: amLODIPine 10 MG TABLET PO SCH (21:08)
[2022-05-22] MEDS: ALBUTEROL/IPRATROPIUM 3 ML NEB RESP TX SCH ×2 (01:01→07:45)
[2022-05-22 05:01] LABS: Basophils % 0.2 % (0.0-0.8); Hematocrit 29.3 VOL% (35.7-47.0); Hemoglobin 9.2 GM/DL (12.0-16.0); Immature Granulocytes % 0.7 %; Immature Granulocytes Absolute 0.07 #; Lymphocytes # 0.5 10*3/uL (1.4-4.0); Lymphocytes % 4.6 % (21.3-54.2); Mean Corpuscular HGB Conc 31.4 GM/DL (32-36); Mean Corpuscular Volume 92.1 FL (87-102); Mean Platelet Volume 9.5 FL (9.6-12.0); Monocytes # 0.6 10*3/uL (0.11-0.8); Monocytes % 5.5 % (1.7-12.7); Platelet Count 256 T/CUMM (130-400); Red Blood Count 3.18 MC/CUMM (3.8-5.5); Red Cell Distribution Width 17.6 % (9.3-17.3); White Blood Count 10.3 T/CUMM (4-12)
[2022-05-22 05:30] LABS: Calcium 8.6 MG/DL (8.5-10.1); Osmolality,Calculated 289.1 MOS/KG (273-304); Potassium 4.3 MMOL/L (3.5-5.1)
[2022-05-22 05:32] LABS: Calcium 8.6 MG/DL (8.5-10.1); Osmolality,Calculated 286.3 MOS/KG (273-304); Total Protein 6.2 G/DL (6.4-8.2)
[2022-05-22 05:36] LABS: Risk Ratio 2.81; VLDL Cholesterol 15.8 MG/DL
[2022-05-22 05:41] LABS: Hypochromia Slight; Lymphocytes 5 % (20-55); Microcytosis Slight; Platelet Estimate Adequate; Total Cells Counted 100
[2022-05-22] MEDS: LEVOTHYROXINE 100 MCG TABLET PO SCH (05:55)
[2022-05-22] MEDS: guaiFENesin/DM ER 600-30 MG TABLET PO SCH (08:52)
[2022-05-22] MEDS: methylPREDNISolone SOD SUC 40 MG/1 ML VIAL IV SCH (08:52)
[2022-05-22] MEDS: hydrALAZINE 25 MG TABLET PO SCH (08:52)
[2022-05-22] MEDS: PHENYTOIN ER 100 MG CAPSULE PO SCH (08:52)
[2022-05-22] MEDS: FLUTICASONE/SALMETEROL 250-50 DISKUS 14 DOSE INH SCH (08:53)
[2022-05-22] MEDS: LEVOFLOXACIN INJ 500 MG/100 ML PREMIX IV SCH (08:53)
[2022-05-22] MEDS ORDERED: ROSUVASTATIN 20 MG TABLET PO SCH (09:00)
[2022-05-22 11:53] VITALS: BP 149/57
== END 2022-05-22 12:30 | disposition home or self-care (01) ==
LOC: N.ED 16:47 → N.EDINP 16:47 → SUATTDRO 20:24 → N.3E 22:44
PROVIDERS: ADMIT Family Medicine; ATTEND Internal Medicine

== ENCOUNTER 2022-08-14 02:59 | Inpatient (IN) ==
[2022-08-14 04:12] LABS: Alanine Aminotransferase 22 U/L (13-56); Albumin 3.5 G/DL (3.4-5.0); Alkaline Phosphatase 129 U/L (45-117); Aspartate Amino Transferase 21 U/L (0-37); Bilirubin,Total < 0.39 MG/DL (0.20-1.00); Blood Urea Nitrogen 23 MG/DL (7-18); Calcium 8.6 MG/DL (8.5-10.1); Carbon Dioxide 24 MMOL/L (21-32); Chloride 108 MMOL/L (98-107); Glucose 161 MG/DL (74-106); Osmolality,Calculated 279.8 MOS/KG (273-304); Potassium 3.7 MMOL/L (3.5-5.1); Sodium 137 MMOL/L (136-145); Total Protein 6.7 G/DL (6.4-8.2)
[2022-08-14 04:23] LABS: Basophils % 0.2 % (0.0-0.8); Eosinophils # 0.3 10*3/uL (0.0-0.87); Eosinophils % 3.7 % (0.00-10.9); Hematocrit 37.2 VOL% (35.7-47.0); Hemoglobin 11.4 GM/DL (12.0-16.0); Immature Granulocytes % 0.6 %; Immature Granulocytes Absolute 0.06 #; Lymphocytes % 11.2 % (21.3-54.2); Mean Corpuscular HGB Conc 30.6 GM/DL (32-36); Mean Corpuscular Volume 89.6 FL (87-102); Mean Platelet Volume 9.4 FL (9.6-12.0); Monocytes # 0.5 10*3/uL (0.11-0.8); Monocytes % 5.7 % (1.7-12.7); Neutrophils % 78.6 % (38.7-73.9); Platelet Count 245 T/CUMM (130-400); Red Blood Count 4.15 MC/CUMM (3.8-5.5); Red Cell Distribution Width 14.5 % (9.3-17.3); White Blood Count 9.3 T/CUMM (4-12)
[2022-08-14 04:30] LABS: INR 0.9; PT Patient Result 9.8 SECS (10.1-12.1); Partial Thromboplastin Time 27.3 SECS (23.7-32.9)
[2022-08-14] MEDS ORDERED: ONDANSETRON 4 MG/2 ML VIAL IV STA (04:32)
[2022-08-14] MEDS ORDERED: HYDROmorphone 1 MG/1 ML SYRINGE IV STA (04:32)
[2022-08-14] MEDS ORDERED: hydrALAZINE 20 MG/1 ML VIAL IV PRN (07:28)
[2022-08-14] MEDS ORDERED: ACETAMINOPHEN 325 MG TABLET PO PRN (08:15)
[2022-08-14] MEDS ORDERED: SODIUM CHLORIDE 0.9% 1,000 ML IV SCH (08:30)
[2022-08-14] MEDS: PANTOPRAZOLE 40 MG TABLET PO SCH (08:56)
[2022-08-14] MEDS: HYDROmorphone 1 MG/1 ML SYRINGE IV PRN ×3 (10:49→20:40)
[2022-08-14] MEDS: ALBUTEROL/IPRATROPIUM 3 ML NEB RESP TX SCH ×2 (13:05→19:35)
[2022-08-14] MEDS: hydrALAZINE 25 MG TABLET PO SCH ×2 (14:17→20:39)
[2022-08-14] MEDS: PHENYTOIN ER 100 MG CAPSULE PO SCH ×3 (14:18→20:39)
[2022-08-14] MEDS: ONDANSETRON 4 MG/2 ML VIAL IV PRN ×2 (15:36→20:40)
[2022-08-14] MEDS: ISOSORBIDE MONONITRATE 30 MG TABLET PO SCH (20:39)
[2022-08-14] MEDS: CHOLECALCIFEROL 1,000 UNIT TABLET PO SCH (20:39)
[2022-08-14] MEDS: FLUTICASONE/SALMETEROL 250-50 DISKUS 14 DOSE INH SCH (20:39)
[2022-08-14] MEDS: amLODIPine 10 MG TABLET PO SCH (20:39)
[2022-08-14] MEDS ORDERED: carvediloL 12.5 MG TABLET PO SCH (21:00)
[2022-08-15] MEDS: HYDROmorphone 1 MG/1 ML SYRINGE IV PRN ×3 (00:05→17:48)
[2022-08-15] MEDS: ONDANSETRON 4 MG/2 ML VIAL IV PRN ×2 (00:05→06:15)
[2022-08-15] MEDS: ALBUTEROL/IPRATROPIUM 3 ML NEB RESP TX SCH ×4 (01:33→19:40)
[2022-08-15 06:10] LABS: Basophils % 0.3 % (0.0-0.8); Eosinophils # 0.4 10*3/uL (0.0-0.87); Eosinophils % 5.4 % (0.00-10.9); Hematocrit 30.9 VOL% (35.7-47.0); Hemoglobin 9.3 GM/DL (12.0-16.0); Immature Granulocytes % 0.3 %; Immature Granulocytes Absolute 0.02 #; Lymphocytes # 1.2 10*3/uL (1.4-4.0); Lymphocytes % 15.9 % (21.3-54.2); Mean Corpuscular HGB Conc 30.1 GM/DL (32-36); Mean Corpuscular Volume 91.4 FL (87-102); Mean Platelet Volume 9.6 FL (9.6-12.0); Monocytes # 0.6 10*3/uL (0.11-0.8); Monocytes % 8.4 % (1.7-12.7); Neutrophils % 69.7 % (38.7-73.9); Platelet Count 226 T/CUMM (130-400); Red Blood Count 3.38 MC/CUMM (3.8-5.5); Red Cell Distribution Width 14.6 % (9.3-17.3); White Blood Count 7.4 T/CUMM (4-12)
[2022-08-15 06:28] LABS: Calcium 8.5 MG/DL (8.5-10.1); Osmolality,Calculated 286.1 MOS/KG (273-304); Potassium 4.3 MMOL/L (3.5-5.1)
[2022-08-15] MEDS: PANTOPRAZOLE 40 MG TABLET PO SCH (08:11)
[2022-08-15] MEDS: ESCITALOPRAM 10 MG TABLET PO SCH (08:11)
[2022-08-15] MEDS: ROSUVASTATIN 20 MG TABLET PO SCH (08:11)
[2022-08-15] MEDS: carvediloL 12.5 MG TABLET PO SCH ×2 (08:11→17:12)
[2022-08-15] MEDS: hydrALAZINE 25 MG TABLET PO SCH ×3 (08:11→20:54)
[2022-08-15] MEDS: PHENYTOIN ER 100 MG CAPSULE PO SCH ×4 (08:12→20:54)
[2022-08-15] MEDS: LEVOTHYROXINE 100 MCG TABLET PO SCH (08:14)
[2022-08-15] MEDS: FLUTICASONE/SALMETEROL 250-50 DISKUS 14 DOSE INH SCH ×2 (08:14→20:55)
[2022-08-15] MEDS ORDERED: DEXAMETHASONE 4 MG/1 ML VIAL ONE (11:22)
[2022-08-15] MEDS ORDERED: ONDANSETRON 4 MG/2 ML VIAL ONE (11:22)
[2022-08-15] MEDS ORDERED: ROCURONIUM 50 MG/5 ML VIAL IV ONE (11:22)
[2022-08-15] MEDS ORDERED: propofoL 200 MG/20 ML VIAL IV ONE (11:22)
[2022-08-15] MEDS ORDERED: SUCCINYLCHOLINE 200 MG/10 ML VIAL ONE (11:22)
[2022-08-15] MEDS ORDERED: fentaNYL 100 MCG/2 ML VIAL ONE (11:22)
[2022-08-15] MEDS ORDERED: LACTATED RINGERS 1,000 ML IV SCH (11:30)
[2022-08-15] MEDS ORDERED: ceFAZolin 1,000 MG VIAL ONE (12:45)
[2022-08-15] MEDS ORDERED: SEVOFLURANE 1 UNIT/15 MINUTE INH ONE ×6 (12:45→14:05)
[2022-08-15] MEDS ORDERED: hydrALAZINE 20 MG/1 ML VIAL ONE (12:57)
[2022-08-15] MEDS ORDERED: LACTATED RINGERS 1,000 ML IV ONE (13:33)
[2022-08-15] MEDS ORDERED: GLYCOPYRROLATE 0.4 MG/2 ML VIAL ONE (14:02)
[2022-08-15] MEDS ORDERED: NEOSTIGMINE 10 MG/10 ML VIAL ONE (14:02)
[2022-08-15] MEDS ORDERED: ACETAMINOPHEN INJ 1,000 MG/100 ML VIAL IV ONE (14:10)
[2022-08-15 15:16] LABS: Basophils # 0.1 10*3/uL (0.0-0.2); Basophils % 0.3 % (0.0-0.8); Eosinophils # 0.3 10*3/uL (0.0-0.87); Eosinophils % 1.4 % (0.00-10.9); Hemoglobin 11.4 GM/DL (12.0-16.0); Immature Granulocytes % 1.3 %; Immature Granulocytes Absolute 0.25 #; Lymphocytes # 1.2 10*3/uL (1.4-4.0); Lymphocytes % 6.5 % (21.3-54.2); Mean Corpuscular Volume 90.7 FL (87-102); Mean Platelet Volume 9.2 FL (9.6-12.0); Monocytes # 0.7 10*3/uL (0.11-0.8); Monocytes % 3.6 % (1.7-12.7); Neutrophils % 86.9 % (38.7-73.9); Platelet Count 307 T/CUMM (130-400); Red Blood Count 4.19 MC/CUMM (3.8-5.5); Red Cell Distribution Width 14.6 % (9.3-17.3); White Blood Count 18.9 T/CUMM (4-12)
[2022-08-15] MEDS: amLODIPine 10 MG TABLET PO SCH (20:54)
[2022-08-15] MEDS: CHOLECALCIFEROL 1,000 UNIT TABLET PO SCH (20:54)
[2022-08-15] MEDS: ISOSORBIDE MONONITRATE 30 MG TABLET PO SCH (20:54)
[2022-08-15] MEDS ORDERED: ENOXAPARIN 40 MG/0.4 ML SYRINGE SUBCUT SCH (21:00)
[2022-08-16] MEDS: traMADol 50 MG TABLET PO PRN ×2 (00:23→09:44)
[2022-08-16] MEDS: ALBUTEROL/IPRATROPIUM 3 ML NEB RESP TX SCH ×4 (01:52→19:08)
[2022-08-16] MEDS: HYDROmorphone 1 MG/1 ML SYRINGE IV PRN ×2 (03:01→10:36)
[2022-08-16 05:49] LABS: Calcium 8.3 MG/DL (8.5-10.1); Osmolality,Calculated 289.3 MOS/KG (273-304); Potassium 4.4 MMOL/L (3.5-5.1)
[2022-08-16] MEDS: LEVOTHYROXINE 100 MCG TABLET PO SCH (05:52)
[2022-08-16 05:58] LABS: Basophils % 0.3 % (0.0-0.8); Eosinophils # 0.1 10*3/uL (0.0-0.87); Eosinophils % 0.7 % (0.00-10.9); Hematocrit 28.1 VOL% (35.7-47.0); Immature Granulocytes % 0.6 %; Immature Granulocytes Absolute 0.06 #; Lymphocytes # 1.4 10*3/uL (1.4-4.0); Mean Corpuscular HGB Conc 30.6 GM/DL (32-36); Mean Corpuscular Volume 90.4 FL (87-102); Mean Platelet Volume 9.7 FL (9.6-12.0); Monocytes % 9.5 % (1.7-12.7); Neutrophils % 74.9 % (38.7-73.9); Red Cell Distribution Width 14.7 % (9.3-17.3)
[2022-08-16 06:12] LABS: Hemoglobin 8.6 GM/DL (12.0-16.0); Platelet Count 241 T/CUMM (130-400); Red Blood Count 3.11 MC/CUMM (3.8-5.5); White Blood Count 10.1 T/CUMM (4-12)
[2022-08-16] MEDS: ROSUVASTATIN 20 MG TABLET PO SCH (09:47)
[2022-08-16] MEDS: PANTOPRAZOLE 40 MG TABLET PO SCH (09:47)
[2022-08-16] MEDS: FLUTICASONE/SALMETEROL 250-50 DISKUS 14 DOSE INH SCH ×2 (09:48→22:12)
[2022-08-16] MEDS: hydrALAZINE 25 MG TABLET PO SCH ×3 (09:48→21:21)
[2022-08-16] MEDS: carvediloL 12.5 MG TABLET PO SCH ×2 (09:48→16:19)
[2022-08-16] MEDS: PHENYTOIN ER 100 MG CAPSULE PO SCH ×4 (09:48→22:13)
[2022-08-16] MEDS: ESCITALOPRAM 10 MG TABLET PO SCH (09:48)
[2022-08-16] MEDS: ONDANSETRON 4 MG/2 ML VIAL IV PRN (10:36)
[2022-08-16] MEDS ORDERED: SODIUM CHLORIDE 0.9% 500 ML IV SCH (15:00)
[2022-08-16] MEDS: ACETAMINOPHEN 500 MG TABLET PO SCH ×2 (16:19→21:21)
[2022-08-16] MEDS: ENOXAPARIN 30 MG/0.3 ML SYRINGE SUBCUT SCH (21:19)
[2022-08-16] MEDS: CHOLECALCIFEROL 1,000 UNIT TABLET PO SCH (21:21)
[2022-08-16] MEDS: amLODIPine 10 MG TABLET PO SCH (21:21)
[2022-08-16] MEDS: ISOSORBIDE MONONITRATE 30 MG TABLET PO SCH (21:21)
[2022-08-17] MEDS: ALBUTEROL/IPRATROPIUM 3 ML NEB RESP TX SCH ×4 (00:05→19:18)
[2022-08-17] MEDS: ACETAMINOPHEN 500 MG TABLET PO SCH ×3 (05:44→21:50)
[2022-08-17] MEDS: LEVOTHYROXINE 100 MCG TABLET PO SCH (05:44)
[2022-08-17 06:21] LABS: Basophils % 0.2 % (0.0-0.8); Eosinophils % 0.4 % (0.00-10.9); Hematocrit 26.4 VOL% (35.7-47.0); Immature Granulocytes % 1.1 %; Lymphocytes # 0.9 10*3/uL (1.4-4.0); Lymphocytes % 9.6 % (21.3-54.2); Mean Corpuscular HGB Conc 30.3 GM/DL (32-36); Mean Corpuscular Volume 89.8 FL (87-102); Mean Platelet Volume 9.6 FL (9.6-12.0); Monocytes # 0.9 10*3/uL (0.11-0.8); Monocytes % 9.2 % (1.7-12.7); Neutrophils % 79.5 % (38.7-73.9); Platelet Count 213 T/CUMM (130-400); Red Blood Count 2.94 MC/CUMM (3.8-5.5); Red Cell Distribution Width 14.6 % (9.3-17.3); White Blood Count 9.2 T/CUMM (4-12)
[2022-08-17 06:41] LABS: Calcium 8.4 MG/DL (8.5-10.1); Osmolality,Calculated 292.3 MOS/KG (273-304); Potassium 4.2 MMOL/L (3.5-5.1)
[2022-08-17] MEDS: ESCITALOPRAM 10 MG TABLET PO SCH (10:12)
[2022-08-17] MEDS: carvediloL 12.5 MG TABLET PO SCH ×2 (10:12→16:56)
[2022-08-17] MEDS: PANTOPRAZOLE 40 MG TABLET PO SCH (10:12)
[2022-08-17] MEDS: ROSUVASTATIN 20 MG TABLET PO SCH (10:12)
[2022-08-17] MEDS: PHENYTOIN ER 100 MG CAPSULE PO SCH ×4 (10:12→21:55)
[2022-08-17] MEDS: FLUTICASONE/SALMETEROL 250-50 DISKUS 14 DOSE INH SCH ×2 (10:12→21:54)
[2022-08-17] MEDS: hydrALAZINE 25 MG TABLET PO SCH ×3 (10:12→21:49)
[2022-08-17] MEDS: traMADol 50 MG TABLET PO PRN (10:41)
[2022-08-17] MEDS: ENOXAPARIN 30 MG/0.3 ML SYRINGE SUBCUT SCH (21:48)
[2022-08-17] MEDS: amLODIPine 10 MG TABLET PO SCH (21:49)
[2022-08-17] MEDS: CHOLECALCIFEROL 1,000 UNIT TABLET PO SCH (21:53)
[2022-08-17] MEDS: ISOSORBIDE MONONITRATE 30 MG TABLET PO SCH (21:55)
[2022-08-18] MEDS: ALBUTEROL/IPRATROPIUM 3 ML NEB RESP TX SCH ×4 (00:34→19:00)
[2022-08-18] MEDS: LEVOTHYROXINE 100 MCG TABLET PO SCH (06:33)
[2022-08-18] MEDS: ACETAMINOPHEN 500 MG TABLET PO SCH ×3 (06:33→22:00)
[2022-08-18] MEDS: ESCITALOPRAM 10 MG TABLET PO SCH (09:12)
[2022-08-18] MEDS: ROSUVASTATIN 20 MG TABLET PO SCH (09:12)
[2022-08-18] MEDS: PANTOPRAZOLE 40 MG TABLET PO SCH (09:12)
[2022-08-18] MEDS: PHENYTOIN ER 100 MG CAPSULE PO SCH ×4 (09:12→20:43)
[2022-08-18] MEDS: carvediloL 12.5 MG TABLET PO SCH ×2 (09:12→16:51)
[2022-08-18] MEDS: hydrALAZINE 25 MG TABLET PO SCH ×3 (09:12→20:43)
[2022-08-18] MEDS: FLUTICASONE/SALMETEROL 250-50 DISKUS 14 DOSE INH SCH ×2 (09:12→20:43)
[2022-08-18] MEDS: amLODIPine 10 MG TABLET PO SCH (20:44)
[2022-08-18] MEDS: CHOLECALCIFEROL 1,000 UNIT TABLET PO SCH (20:44)
[2022-08-18] MEDS: ISOSORBIDE MONONITRATE 30 MG TABLET PO SCH (20:44)
[2022-08-18] MEDS: ENOXAPARIN 30 MG/0.3 ML SYRINGE SUBCUT SCH (20:44)
[2022-08-19] MEDS: ALBUTEROL/IPRATROPIUM 3 ML NEB RESP TX SCH ×4 (01:00→19:20)
[2022-08-19] MEDS: LEVOTHYROXINE 100 MCG TABLET PO SCH (05:42)
[2022-08-19] MEDS: ACETAMINOPHEN 500 MG TABLET PO SCH (05:43)
[2022-08-19] MEDS: ROSUVASTATIN 20 MG TABLET PO SCH (10:11)
[2022-08-19] MEDS: PANTOPRAZOLE 40 MG TABLET PO SCH (10:11)
[2022-08-19] MEDS: carvediloL 12.5 MG TABLET PO SCH ×2 (10:11→17:01)
[2022-08-19] MEDS: FLUTICASONE/SALMETEROL 250-50 DISKUS 14 DOSE INH SCH ×2 (10:11→20:30)
[2022-08-19] MEDS: PHENYTOIN ER 100 MG CAPSULE PO SCH ×4 (10:11→21:21)
[2022-08-19] MEDS: hydrALAZINE 25 MG TABLET PO SCH ×3 (10:11→21:21)
[2022-08-19] MEDS: ESCITALOPRAM 10 MG TABLET PO SCH (10:11)
[2022-08-19] MEDS: traMADol 50 MG TABLET PO PRN ×2 (14:55→21:21)
[2022-08-19] MEDS: guaiFENesin/DM ER 600-30 MG TABLET PO SCH ×2 (15:52→21:21)
[2022-08-19] MEDS: CHOLECALCIFEROL 1,000 UNIT TABLET PO SCH (21:21)
[2022-08-19] MEDS: ISOSORBIDE MONONITRATE 30 MG TABLET PO SCH (21:21)
[2022-08-19] MEDS: amLODIPine 10 MG TABLET PO SCH (21:21)
[2022-08-19] MEDS: ENOXAPARIN 30 MG/0.3 ML SYRINGE SUBCUT SCH (21:22)
[2022-08-20] MEDS: ALBUTEROL/IPRATROPIUM 3 ML NEB RESP TX SCH ×2 (02:25→06:58)
[2022-08-20] MEDS: traMADol 50 MG TABLET PO PRN ×2 (03:36→08:01)
[2022-08-20] MEDS: LEVOTHYROXINE 100 MCG TABLET PO SCH (05:30)
[2022-08-20] MEDS: guaiFENesin/DM ER 600-30 MG TABLET PO SCH (08:01)
[2022-08-20] MEDS: ESCITALOPRAM 10 MG TABLET PO SCH (08:01)
[2022-08-20] MEDS: PHENYTOIN ER 100 MG CAPSULE PO SCH (08:01)
[2022-08-20] MEDS: ROSUVASTATIN 20 MG TABLET PO SCH (08:01)
[2022-08-20] MEDS: hydrALAZINE 25 MG TABLET PO SCH (08:02)
[2022-08-20] MEDS: FLUTICASONE/SALMETEROL 250-50 DISKUS 14 DOSE INH SCH (08:02)
[2022-08-20] MEDS: PANTOPRAZOLE 40 MG TABLET PO SCH (08:02)
[2022-08-20] MEDS: carvediloL 12.5 MG TABLET PO SCH (08:02)
[2022-08-20 08:11] VITALS: BP 162/66
== END 2022-08-20 12:39 | disposition swing bed (61) | DRG 521 ==
LOC: N.ED 02:59 → N.EDINP 08:15 → SUATTDRO 08:15 → N.3E 11:21
PROVIDERS: ADMIT Internal Medicine; ATTEND Hospitalist